=== PATIENT | female | born 1940 | race Caucasian/White ===

== ENCOUNTER 2016-12-13 13:13 | Emergency (ER) | payer MEDICARE ==
[2016-12-13 13:37] VITALS: BP 149/74
--- NOTE | 2016-12-13 15:03 | UC ---
Abdominal Pain Female HPI - HPI Summary HPI Summary: The patient comes in today for: 1. Abdominal pain: Onset: 2 weeks. Palliative/provocative: Nothing makes her pain better or worse. Quality: Cramping, and she states she feels like she has to empty her bowels. Region: Lower right and left abdomen. Severity: 8/10 Time: Constant. Associated symptoms: Previous evaluation: She is a [facility] patient who was seen 5 days ago. She states that the nurse practitioner there thought she had diverticulitis and put her on Augmentin. She was taking it 875 mg twice a day with no improvement. She denies any fevers. She has had a colonoscopy done in 2013. This was done in [facility]. She was only told that she had polpys removed which were not cancerous. She was supposed to have a repeat colonoscopy in five years. The nurse practitioner ordered blood work. No urine was done. She does not know what blood tests were done. She was told that they were 'OK'. She states that she had a previous episode of abdominal pain and again was seen at [facility] but was told then that she had problems with constipation. She was given Miralax and after using it she was better. Last BM: Normal. No blood mucous or pus. * - History of Current Complaint Chief Complaint: UCAbdominalPain Stated Complaint: STOMACH PAINS Time Seen by Provider: 12/13/16 14:53 Hx Obtained From: Patient ?: No Allergies/Adverse Reactions: Allergies Allergy/AdvReac Type Severity Reaction Status Date / Time Sulfa Antibiotics Allergy Rash Verified 12/31/15 08:11 Home Medications: Home Medications Amoxicillin/Clavulanate TAB* [Augmentin TAB 875*] 875 mg PO BID 12/13/16 [ History Confirmed 12/13/16] PMH/Surg Hx/FS Hx/Imm Hx Previously Healthy: No - Gout. Endocrine History Of: Reports: Thyroid Disease, Dyslipidemia Denies: Diabetes, Hyperthyroidism, Hypothyroidism Cardiovascular History Of: Reports: Cardiac Disorders - atrial fibrillation -, Hypertension, Pacemaker/ICD, Atrial Fibrillation Denies: Myocardial Infarction, Congestive Heart Failure, Deep Vein Thrombosis , Bleeding Disorders Respiratory History Of: Reports: COPD - THINK MAYBE Denies: Asthma, Bronchitis, Pneumonia, Pulmonary Embolism GI/ History Of: Denies: Gastroesophageal Reflux, Ulcer, Gastrointestinal Bleed, Gall Bladder Disease, Kidney Stones, Diverticulitis, Renal Disease, Urosepsis Neurological History Of: Reports: Migraine - HX OF -NONE RECENTLY Denies: TIA, CVA, Dementia, Seizures Psychological History Of: Reports: Anxiety Denies: Depression, Bipolar Disorder, Schizophrenia, Post Traumatic Stress Disorder Cancer History Of: Denies: Lung Cancer, Colorectal Cancer, Breast Cancer, Prostate Cancer, Cervical Cancer Other History Of: Anticoagulant Therapy - On 12/11 INR was 3.5 Negative For: HIV, Hepatitis B, Hepatitis C - Surgical History Surgical History: Yes Surgery Procedure, Year, and Place: PACEMAKER; [facility] - Family History Known Family History: Positive: Cardiac Disease, Hypertension - Social History Occupation: Retired Alcohol Use: None Substance Use Type: None Smoking Status (MU): Heavy Every Day Tobacco Smoker Type: Cigarettes Amount Used/How Often: 1 ppd Length of Time of Smoking/Using Tobacco: SINCE AGE 19 Have You Smoked in the Last Year: Yes Household Exposure Type: Cigarettes - Immunization History Most Recent Influenza Vaccination: never Most Recent Tetanus Shot: unknown Most Recent Pneumonia Vaccination: never Review of Systems Constitutional: Negative Skin: Negative Eyes: Negative ENT: Negative Respiratory: Negative Cardiovascular: Negative Gastrointestinal: Abdominal Pain Genitourinary: Negative All Other Systems Reviewed And Are Negative: Yes Physical Exam Triage Information Reviewed: Yes Appearance: Well-Appearing, No Pain Distress, Well-Nourished Vital Signs: Initial Vital Signs Temp 96.4 F 12/13/16 13:30 Pulse 88 12/13/16 13:30 Resp 18 12/13/16 13:30 BP 149/74 12/13/16 13:30 Pulse Ox 96 12/13/16 13:30 Vital Signs Reviewed: Yes Eyes: Positive: Conjunctiva Clear. Negative: Discharge ENT: Positive: Hearing grossly normal. Negative: Pharyngeal erythema, Nasal congestion, Nasal drainage, TM bulging, TM dull, TM red, Tonsillar swelling, Tonsillar exudate Dental: Negative: Gross Decay/Caries @, Dental Fracture @ Neck: Positive: Supple, Nontender, No Lymphadenopathy. Negative: Nuchal Rigidity Respiratory: Positive: Chest non-tender, Lungs clear, No respiratory distress, No accessory muscle use. Negative: Crackles, Wheezing Cardiovascular: Positive: RRR, No Murmur Abdomen Description: Positive: No Organomegaly, Soft - She had no rebound tenderness or percussion tenderness. The pain was not much worse with deep palpation. No masses/. Negative: Nontender - She has mild tenderness of the LLQ and the RLQ and the suprapubic area., Distended, Guarding, Peritoneal Signs , Pulsatile Mass Musculoskeletal: Positive: Strength Intact, ROM Intact, No Edema Neurological: Positive: Alert, Muscle Tone Normal Psychological: Positive: Age Appropriate Behavior, Consolable Skin: Negative: rashes, breakdown Abd Pain Female Course/Dx - Course Course Of Treatment: The patient was told that I don't know for sure what is causing her abdominal. pain. The patient was also told that there are many causes for abdominal pain--. some which are benign and some which are life- threatening. Furthermore, it was. mentioned that the life-threatening causes of abdominal pain can present with. minimal, atypical, or even no symptoms. Becasue of these facts and the fact. that we don't have here all the testing methods commonly used to assess abdominal. pain, and their timely resuts, my recommendation is for the patient to go to. the [facility] ([facility]) ER. However, she did not want to do this and decided to call her primary care provider in the morning for a repeat evaluation. She declined any anti-spasmodic medication. - Differential Dx/Diagnosis Provider Diagnoses: Abdominal pain Discharge - Discharge Plan Condition: Stable Disposition: AGAINST MEDICAL ADVICE Patient Education Materials: Abdominal Pain (ED) Referrals: Cathy Andrade MD [Primary Care Provider] - As Soon As Possible (If you are not going to the ER, please see your primary care provider as soon as you can. If you get worse, please re-consider going to the ER.)
== END 2016-12-13 15:43 | disposition left against medical advice (07) ==
LOC: UCEAST 13:13
DX: R10.30 Lower abdominal pain, unspecified (principal); Z88.2 Allergy status to sulfonamides; F17.210 Nicotine dependence, cigarettes, uncomplicated
CPT/HCPCS: 99212; G0463

== ENCOUNTER 2017-08-02 21:40 | Emergency (ER) | payer MEDICARE ==
[2017-08-02] MEDS ORDERED: NS 0.9% 1000 ML* 1,000 ML IV SCH (22:00)
[2017-08-02 22:28] LABS: Hematocrit 39 % (35-47); Hemoglobin 13.4 g/dl (12.0-16.0); Mean Corpuscular HGB Conc 35 g/dl (31-36); Mean Corpuscular Hemoglobin 31 pg (27-31); Mean Corpuscular Volume 90 fL (80-97); Mean Platelet Volume 7 um3 (7.4-10.4); Red Blood Count 4.27 10^6/ul (4.0-5.4); Red Cell Distribution Width 15 % (10.5-15); White Blood Count 5.8 10^3/ul (3.5-10.8)
[2017-08-02 22:42] LABS: Albumin 4.2 g/dL (3.2-5.2); BUN/Creatinine Ratio 16.1 (8-20); C Reactive Protein 16.14 mg/L (< 5.00); EGFR African American 57.3 (>60); EGFR Non-African American 44.5 (>60); Globulin 3.6 g/dL (2-4); Magnesium 2.1 mg/dL (1.9-2.7); Potassium 3.5 mmol/L (3.5-5.0); Total Bilirubin 0.4 mg/dL (0.2-1.0); Total Protein 7.8 g/dL (6.4-8.9)
[2017-08-02 22:45] LABS: Troponin I 0.01 ng/mL (<0.04)
[2017-08-02 23:27] LABS: TSH (Thyroid Stimulating Horm) 1.36 mcIU/mL (0.34-5.60)
[2017-08-03 00:37] VITALS: BP 128/70
--- NOTE | 2017-08-03 00:55 | ED ---
Sheldon Greenberg Nikita, scribed for Bandar Carlisle MD on 08/03/17 at 0014 . Hypertension - HPI Summary HPI Summary: This patient is a 76 year old F presenting to ED with a chief complaint of HTN since yesterday afternoon (08/02). The CC is described as constant. The patient rates the pain 2/10 in severity (MOMIN). Symptoms aggravated by nothing. Symptoms alleviated by nothing. Patient reports MOMIN and L shoulder pain. Patient denies SOB. Pt has taken Lisinopril 20mg, Triamteren-HCTZ37.5-25mg, and Atenolol 25mg at approximately 1800. - History of Current Complaint Chief Complaint: EDHypertension Stated Complaint: HIGH BP Time Seen by Provider: 08/03/17 00:05 Hx Obtained From: Patient Onset/Duration: Started Hours Ago, Still Present Timing: Constant, Lasting Hours Aggravating Factor(s): Nothing Alleviating Factor(s): Nothing Associated Signs & Symptoms: Other: - MOMIN and L shoulder pain; denies SOB - Allergies/Home Medications Allergies/Adverse Reactions: Allergies Allergy/AdvReac Type Severity Reaction Status Date / Time Sulfa Antibiotics Allergy Rash Verified 08/02/17 21:46 PMH/Surg Hx/FS Hx/Imm Hx Endocrine/Hematology History: Reports: Hx Anticoagulant Therapy - On 12/11 INR was 3.5, Hx Blood Transfusions, Hx Thyroid Disease Denies: Hx Diabetes Cardiovascular History: Reports: Hx Coronary Artery Disease - CAROTID ARTERY, Hx Hypercholesterolemia, Hx Hypertension, Hx Pacemaker/ICD, Other Cardiovascular Problems/Disorders Denies: Hx Angina - JAW ACHE LEFT, Hx Congestive Heart Failure, Hx Deep Vein Thrombosis, Hx Myocardial Infarction Respiratory History: Reports: Hx Chronic Obstructive Pulmonary Disease (COPD) - THINK MAYBE Denies: Hx Asthma, Hx Lung Cancer, Hx Pneumonia, Hx Pulmonary Embolism GI History: Denies: Hx Gall Bladder Disease, Hx Gastrointestinal Bleed, Hx Ulcer, Hx Urosepsis History: Denies: Hx Kidney Stones, Hx Renal Disease Musculoskeletal History: Reports: Hx Arthritis Sensory History: Reports: Hx Cataracts - BILATARAL, Hx Contacts or Glasses Denies: Hx Hearing Aid Opthamlomology History: Reports: Hx Cataracts - BILATARAL, Hx Contacts or Glasses Neurological History: Reports: Hx Migraine - HX OF -NONE RECENTLY Denies: Hx Dementia, Hx Seizures, Hx Transient Ischemic Attacks (TIA) Psychiatric History: Reports: Hx Anxiety Denies: Hx Depression, Hx Schizophrenia, Hx Bipolar Disorder - Surgical History Surgery Procedure, Year, and Place: PACEMAKER; [place] Hx Anesthesia Reactions: No - Immunization History Date of Tetanus Vaccine: PT STATES UNSURE Date of Influenza Vaccine: NONE Infectious Disease History: No Infectious Disease History: Denies: Hx Clostridium Difficile, Hx Hepatitis, Hx Human Immunodeficiency Virus (HIV), Hx of Known/Suspected MRSA, Hx Shingles, Hx Tuberculosis, Hx Known/ Suspected VRE, Hx Known/Suspected VRSA, History Other Infectious Disease, Traveled Outside the [place] in Last 30 Days - Family History Known Family History: Positive: Cardiac Disease, Hypertension - Social History Alcohol Use: None Substance Use Type: Reports: None Smoking Status (MU): Heavy Every Day Tobacco Smoker Type: Cigarettes Amount Used/How Often: 1 ppd Length of Time of Smoking/Using Tobacco: SINCE AGE 19 Have You Smoked in the Last Year: Yes Review of Systems Positive: Other - hypertension Negative: Shortness Of Breath Positive: Other - L shoulder pain Positive: Headache All Other Systems Reviewed And Are Negative: Yes Physical Exam Triage Information Reviewed: Yes Vital Signs On Initial Exam: Initial Vitals Temp Pulse Resp BP Pulse Ox 97.1 F 79 18 188/87 97 08/02/17 21:42 08/02/17 21:42 08/02/17 21:42 08/02/17 21:42 08/02/17 21:42 Vital Signs Reviewed: Yes Appearance: Positive: Well-Appearing, No Pain Distress Skin: Positive: Warm, Skin Color Reflects Adequate Perfusion, Dry Head/Face: Positive: Normal Head/Face Inspection Eyes: Positive: EOMI, FINA ENT: Positive: Normal ENT inspection Neck: Positive: Supple, Nontender Respiratory/Lung Sounds: Positive: Clear to Auscultation, Breath Sounds Present Cardiovascular: Positive: RRR Abdomen Description: Positive: Nontender, Soft Bowel Sounds: Positive: Present Musculoskeletal: Positive: Normal, Strength/ROM Intact Neurological: Positive: Normal, Sensory/Motor Intact, Alert, Oriented to Person Place, Time Psychiatric: Positive: Affect/Mood Appropriate - [place] Coma Scale Coma Scale Total: 15 Diagnostics - Vital Signs Vital Signs Temp Pulse Resp BP Pulse Ox 08/02/17 23:30 69 125/64 96 08/02/17 23:00 71 131/62 97 08/02/17 22:39 70 109/62 97 08/02/17 22:01 75 96 08/02/17 22:00 144/76 08/02/17 21:42 97.1 F 79 18 188/87 97 - Laboratory Lab Results: Lab Results 08/02/17 08/02/17 08/02/17 Range/Units 22:00 22:00 22:00 WBC (3.5-10.8) 10^3/ul RBC (4.0-5.4) 10^6/ul Hgb (12.0-16.0) g/dl Hct (35-47) % MCV (80-97) fL MCH (27-31) pg MCHC (31-36) g/dl RDW (10.5-15) % Plt Count (150-450) 10^3/ul MPV (7.4-10.4) um3 Neut % (Auto) (38-83) % Lymph % (Auto) (25-47) % [place] % (Auto) (1-9) % Eos % (Auto) (0-6) % Baso % (Auto) (0-2) % Absolute Neuts (auto) (1.5-7.7) 10^3/ul Absolute Lymphs (auto) (1.0-4.8) 10^3/ul Absolute Monos (auto) (0-0.8) 10^3/ul Absolute Eos (auto) (0-0.6) 10^3/ul Absolute Basos (auto) (0-0.2) 10^3/ul Absolute Nucleated RBC 10^3/ul Nucleated RBC % INR (Anticoag Therapy) 1.57 H (0.89-1.11) APTT 42.0 H (26.0-36.3) seconds Sodium 133 (133-145) mmol/L Potassium 3.5 (3.5-5.0) mmol/L Chloride 98 L (101-111) mmol/L Carbon Dioxide 28 (22-32) mmol/L Anion Gap 7 (2-11) mmol/L BUN 19 (6-24) mg/dL Creatinine 1.18 H (0.51-0.95) mg/dL Est GFR ( Amer) 57.3 (>60) Est GFR (Non-Af Amer) 44.5 (>60) BUN/Creatinine Ratio 16.1 (8-20) Glucose 150 H (70-100) mg/dL Lactic Acid 2.0 (0.5-2.0) mmol/L Calcium 10.0 (8.6-10.3) mg/dL Magnesium 2.1 (1.9-2.7) mg/dL Total Bilirubin 0.40 (0.2-1.0) mg/dL AST 15 (13-39) U/L ALT 9 (7-52) U/L Alkaline Phosphatase 98 (34-104) U/L Total Creatine Kinase 35 (10-223) U/L CK-MB (CK-2) 1.2 (0.6-6.3) ng/mL Troponin I 0.01 (<0.04) ng/mL C-Reactive Protein 16.14 H (< 5.00) mg/L B-Natriuretic Peptide ( - 100) pg/mL Total Protein 7.8 (6.4-8.9) g/dL Albumin 4.2 (3.2-5.2) g/dL Globulin 3.6 (2-4) g/dL Albumin/Globulin Ratio 1.2 (1-3) Lipase 22 (11.0-82.0) U/L TSH 1.36 (0.34-5.60) mcIU/mL 08/02/17 08/02/17 Range/Units 22:00 22:00 WBC 5.8 (3.5-10.8) 10^3/ul RBC 4.27 (4.0-5.4) 10^6/ul Hgb 13.4 (12.0-16.0) g/dl Hct 39 (35-47) % MCV 90 (80-97) fL MCH 31 (27-31) pg MCHC 35 (31-36) g/dl RDW 15 (10.5-15) % Plt Count 247 (150-450) 10^3/ul MPV 7 L (7.4-10.4) um3 Neut % (Auto) 70.8 (38-83) % Lymph % (Auto) 23.7 L (25-47) % [place] % (Auto) 4.6 (1-9) % Eos % (Auto) 0.1 (0-6) % Baso % (Auto) 0.8 (0-2) % Absolute Neuts (auto) 4.1 (1.5-7.7) 10^3/ul Absolute Lymphs (auto) 1.4 (1.0-4.8) 10^3/ul Absolute Monos (auto) 0.3 (0-0.8) 10^3/ul Absolute Eos (auto) 0 (0-0.6) 10^3/ul Absolute Basos (auto) 0 (0-0.2) 10^3/ul Absolute Nucleated RBC 0 10^3/ul Nucleated RBC % 0 INR (Anticoag Therapy) (0.89-1.11) APTT (26.0-36.3) seconds Sodium (133-145) mmol/L Potassium (3.5-5.0) mmol/L Chloride (101-111) mmol/L Carbon Dioxide (22-32) mmol/L Anion Gap (2-11) mmol/L BUN (6-24) mg/dL Creatinine (0.51-0.95) mg/dL Est GFR ( Amer) (>60) Est GFR (Non-Af Amer) (>60) BUN/Creatinine Ratio (8-20) Glucose (70-100) mg/dL Lactic Acid (0.5-2.0) mmol/L Calcium (8.6-10.3) mg/dL Magnesium (1.9-2.7) mg/dL Total Bilirubin (0.2-1.0) mg/dL AST (13-39) U/L ALT (7-52) U/L Alkaline Phosphatase (34-104) U/L Total Creatine Kinase (10-223) U/L CK-MB (CK-2) (0.6-6.3) ng/mL Troponin I (<0.04) ng/mL C-Reactive Protein (< 5.00) mg/L B-Natriuretic Peptide 308 H ( - 100) pg/mL Total Protein (6.4-8.9) g/dL Albumin (3.2-5.2) g/dL Globulin (2-4) g/dL Albumin/Globulin Ratio (1-3) Lipase (11.0-82.0) U/L TSH (0.34-5.60) mcIU/mL Result Diagrams: 08/02/17 22:00 08/02/17 22:00 Lab Statement: Any lab studies that have been ordered have been reviewed, and results considered in the medical decision making process. - Radiology CXR Radiology Interpretation Completed By: ED Physician - NAD - EKG 2227 Cardiac Rate: NL EKG Rhythm: Atrial Fibrillation - 72 bpm EKG Interpretation: A-V dual-paced rhythm with some inhibition Hypertension Course/Dx - Course Assessment/Plan: This patient is a 76 year old F presenting to ED with a chief complaint of HTN since yesterday afternoon (08/02). The CC is described as constant. The patient rates the pain 2/10 in severity (MOMIN). Symptoms aggravated by nothing. Symptoms alleviated by nothing. Patient reports MOMIN and L shoulder pain. Patient denies SOB. BP noted and advised to follow up with PCP. Medications reviewed. Allergies noted. CXR reveals NAD. EKG reveals a-fib at 72 bpm and A-V dual-paced rhythm with some inhibition. In the ED course, pt was given fluids. Pt will be discharged. Pt is agreeable with this plan. BP IMPROVED IN ED. DISCUSSED RESULTS WITH PATIENT. F/U PMD; RETURN IF WORSE. - Diagnoses Provider Diagnoses: Hypertension Discharge - Discharge Plan Condition: Stable Disposition: HOME Patient Education Materials: Hypertension (ED) Referrals: Cathy Andrade MD [Primary Care Provider] - Additional Instructions: FOLLOW UP WITH YOUR DOCTOR. RETURN TO THE EMERGENCY DEPARTMENT FOR ANY WORSENING OF YOUR CONDITION; CHEST PAIN, SHORTNESS OF BREATH OR QUESTIONS OR CONCERNS. The documentation as recorded by the Sheldon bhat Nikita accurately reflects the service I personally performed and the decisions made by me, Bandar Carlilse MD.
--- NOTE | 2017-08-03 07:14 | RAD ---
INDICATION: Hypertension. COMPARISON: Comparison is made with a prior chest x-ray study from May 06, 2016. TECHNIQUE: A portable view of the chest was obtained. FINDINGS: The heart appears slightly prominent likely due to underinflation of the lungs and portable technique. There is a multilead transvenous pacemaker present. There is mild prominence of the interstitial markings. The lungs are underinflated and otherwise clear. No pleural effusion is seen. IMPRESSION: NO EVIDENCE FOR ACUTE FINDING.
== END 2017-08-03 00:37 | disposition home or self-care (01) ==
LOC: ED 21:40
DX: I10 Essential (primary) hypertension (principal); R51 Headache; M25.512 Pain in left shoulder; F17.210 Nicotine dependence, cigarettes, uncomplicated; Z79.01 Long term (current) use of anticoagulants
CPT/HCPCS: 36415; 71010; 80053; 82550; 82553; 83605; 83690; 83735; 83880; 84443; 84484; 85025; 85610; 85730; 86140; 93005; 99283

== ENCOUNTER 2018-11-03 19:25 | Emergency (ER) | payer MEDICARE ==
--- NOTE | 2018-11-03 19:53 | ED ---
Dizziness - HPI Summary HPI Summary: This patient is a 77 year old female brought in by ambulance to [facility] accompanied by daughter with a chief complaint of dizziness since 2-3 days ago. Patient states that she has had intermittent dizziness with elevated blood pressure for the past 2-3 days and today, she experienced sudden onset left jaw pain as well. Patients daughter states that the measured bp [employer] INSTRUCTION SPECIALIST was around 230/ 160. The pain is rated 2/10 in severity. Symptoms aggravated by sitting down. Symptoms alleviated by nothing. Patient denies chest pain, SOB, fever, diaphoresis. Patient has a hx of a fib and has a pacemaker. - History Of Current Complaint Chief Complaint: EDDizziness Stated Complaint: CHEST PAIN Time Seen by Provider: 11/03/18 19:36 Hx Obtained From: Patient Onset/Duration: Resolved Timing: Constant Severity Initially: Moderate Character: Dizzy Aggravating Factor(s): Position Change Alleviating Factor(s): Nothing Associated Signs And Symptoms: Positive: Negative - denies chest pain, SOB, fever, diaphoresis - Allergies/Home Medications Allergies/Adverse Reactions: Allergies Allergy/AdvReac Type Severity Reaction Status Date / Time Sulfa (Sulfonamide Allergy Rash Verified 11/03/18 19:38 Antibiotics) PMH/Surg Hx/FS Hx/Imm Hx Previously Healthy: No Endocrine/Hematology History: Reports: Hx Anticoagulant Therapy - On 12/11 INR was 3.5, Hx Blood Transfusions, Hx Thyroid Disease Denies: Hx Diabetes Cardiovascular History: Reports: Hx Coronary Artery Disease - CAROTID ARTERY, Hx Hypercholesterolemia, Hx Hypertension, Hx Pacemaker/ICD, Other Cardiovascular Problems/Disorders Denies: Hx Angina - JAW ACHE LEFT, Hx Congestive Heart Failure, Hx Deep Vein Thrombosis, Hx Myocardial Infarction Respiratory History: Reports: Hx Chronic Obstructive Pulmonary Disease (COPD) - THINK MAYBE Denies: Hx Asthma, Hx Lung Cancer, Hx Pneumonia, Hx Pulmonary Embolism GI History: Denies: Hx Gall Bladder Disease, Hx Gastrointestinal Bleed, Hx Ulcer, Hx Urosepsis History: Denies: Hx Kidney Stones, Hx Renal Disease Musculoskeletal History: Reports: Hx Arthritis Sensory History: Reports: Hx Cataracts - BILATARAL, Hx Contacts or Glasses Denies: Hx Hearing Aid Opthamlomology History: Reports: Hx Cataracts - BILATARAL, Hx Contacts or Glasses Neurological History: Reports: Hx Migraine - HX OF -NONE RECENTLY Denies: Hx Dementia, Hx Seizures, Hx Transient Ischemic Attacks (TIA) Psychiatric History: Reports: Hx Anxiety Denies: Hx Depression, Hx Schizophrenia, Hx Bipolar Disorder - Surgical History Surgery Procedure, Year, and Place: PACEMAKER; [facility] Hx Anesthesia Reactions: No - Immunization History Date of Tetanus Vaccine: PT STATES UNSURE Date of Influenza Vaccine: NONE Infectious Disease History: No Infectious Disease History: Denies: Hx Clostridium Difficile, Hx Hepatitis, Hx Human Immunodeficiency Virus (HIV), Hx of Known/Suspected MRSA, Hx Shingles, Hx Tuberculosis, Hx Known/ Suspected VRE, Hx Known/Suspected VRSA, History Other Infectious Disease, Traveled Outside the [place] in Last 30 Days - Family History Known Family History: Positive: Cardiac Disease, Hypertension - Social History Occupation: Retired Lives: With Family Alcohol Use: None Hx Substance Use: No Substance Use Type: Reports: None Hx Tobacco Use: Yes Smoking Status (MU): Heavy Every Day Tobacco Smoker Type: Cigarettes Amount Used/How Often: 1 ppd Length of Time of Smoking/Using Tobacco: SINCE AGE 19 Have You Smoked in the Last Year: Yes Review of Systems Negative: Fever, Skin Diaphoresis Negative: Chest Pain Negative: Shortness Of Breath Positive: Other - left jaw pain Neurological: Other - Dizziness All Other Systems Reviewed And Are Negative: Yes Physical Exam - Summary Physical Exam Summary: VITAL SIGNS: Reviewed. GENERAL: Patient is a well-developed and nourished female who is lying comfortable in the stretcher. Patient is not in any acute respiratory distress. HEAD AND FACE: No signs of trauma. No ecchymosis, hematomas or skull depressions. No sinus tenderness. EYES: PERRLA, EOMI x 2, Left subconjunctival hemorrhage that has been there since an injection in the eye last week. EARS: Hearing grossly intact. Ear canals and tympanic membranes are within normal limits. MOUTH: Oropharynx within normal limits. NECK: Supple, trachea is midline, no adenopathy, no JVD, no carotid bruit, no c- spine tenderness, neck with full ROM. CHEST: Symmetric, no tenderness at palpation LUNGS: Clear to auscultation bilaterally. No wheezing or crackles. CVS: Regular rate and rhythm, S1 and S2 present, no murmurs or gallops appreciated. ABDOMEN: Soft, non-tender. No signs of distention. No rebound no guarding, and no masses palpated. Bowel sounds are normal. EXTREMITIES: FROM in all major joints, no edema, no cyanosis or clubbing. NEURO: Alert and oriented x 3. No acute neurological deficits. Speech is normal and follows commands. SKIN: Dry and warm Triage Information Reviewed: Yes Vital Signs On Initial Exam: Initial Vitals Temp Pulse Resp BP Pulse Ox 97.0 F 89 15 136/85 94 11/03/18 19:33 11/03/18 19:33 11/03/18 19:33 11/03/18 19:33 11/03/18 19:33 Vital Signs Reviewed: Yes Diagnostics - Vital Signs Vital Signs Temp Pulse Resp BP Pulse Ox 11/03/18 19:37 73 21 136/85 92 11/03/18 19:33 97.0 F 89 15 136/85 94 - Laboratory Result Diagrams: 11/03/18 20:00 11/03/18 20:00 Lab Statement: Any lab studies that have been ordered have been reviewed, and results considered in the medical decision making process. - EKG 2003 Cardiac Rate: Other Rate EKG Rhythm: Sinus Rhythm - 78 BPM Summary of EKG Findings: An EKG, taken 2003, reveals paced rate (78 BPM), normal axis, normal intervals, no ischemic changes. Re-Evaluation - Re-Evaluation First Eval Re-Evaluation Time: 21:15 Change: Improved Comment: Patient is able to ambulate in the ED with no dizziness and with a steady gait. Patient will be given a prescription for 10mg of Lisinopril and instructed to increase her daily dosage from 20mg to 30mg. Dizzy Course/Dx - Course Course Of Treatment: This patient is a 77 year old female brought in by ambulance to [facility] accompanied by daughter with a chief complaint of dizziness since 2-3 days ago. Patients daughter states that the measured bp [employer] INSTRUCTION SPECIALIST was around 230/160. The pain is rated 2/10 in severity. Symptoms aggravated by sitting down. Symptoms alleviated by nothing. Patient denies chest pain, SOB, fever, diaphoresis. Patient has a hx of a fib and has a pacemaker. An EKG, taken 2003, reveals paced rate (78 BPM), normal axis, normal intervals, no ischemic changes. Bloodwork Obtained. Patient is able to ambulate in the ED with no dizziness and with a steady gait at 2117. Patient will be given a prescription for 10mg of Lisinopril and instructed to increase her daily dosage from 20mg to 30mg. Patient will be discharged with HTN and given a prescription for Lisinopril. Patient is advised to follow up with PCP in 1-2 days. The patient is agreeable with this plan. - Diagnoses Provider Diagnoses: HTN (hypertension) Discharge - Sign-Out/Discharge Documenting (check all that apply): Patient Departure Patient Received Moderate/Deep Sedation with Procedure: No - Discharge Plan Condition: Stable Disposition: HOME Prescriptions: Lisinopril TAB* [Prinivil TAB 10 MG*] 10 mg PO DAILY #30 tab Patient Education Materials: Chronic Hypertension (ED) Referrals: Cathy Andrade MD [Primary Care Provider] - 1 Day Additional Instructions: Take newly prescribed Lisinopril in conjunction with daily HTN medication. Return to the ED for any new or worsening symptoms. - Billing Disposition and Condition Condition: STABLE Disposition: Home - Attestation Statements Document Initiated by Beatrice: Yes Documenting Scribe: Radha Chung Provider For Whom Beatrice is Documenting (Include Credential): Gopal Valiente MD Scribe Attestation: Radha Greenberg scribed for Gopal Valiente MD on 11/03/18 at 2121. Scribe Documentation Reviewed: Yes Provider Attestation: The documentation as recorded by the Radha bhat accurately reflects the service I personally performed and the decisions made by Juanjo rojas MD Status of Scribe Document: Viewed
[2018-11-03 20:08] LABS: ABS Basophils 0 10^3/ul (0-0.2); ABS Eosinophils 0 10^3/ul (0-0.6); ABS Lymphocytes 1.3 10^3/ul (1.0-4.8); ABS Monocytes 0.3 10^3/ul (0-0.8); ABS Neutrophils 3.9 10^3/ul (1.5-7.7); ABS Nucleated RBC 0 10^3/ul; Eosinophil % 0.1 %; Hematocrit 39 % (35-47); Hemoglobin 13.4 g/dl (12.0-16.0); Lymphocyte % 22.9 %; Mean Corpuscular HGB Conc 34 g/dl (31-36); Mean Corpuscular Hemoglobin 31 pg (27-31); Mean Corpuscular Volume 91 fL (80-97); Mean Platelet Volume 6.8 fL (7.4-10.4); Nucleated Red Blood Cells % 0.1; Platelet Count 270 10^3/ul (150-450); Red Blood Count 4.32 10^6/ul (4.00-5.40); Red Cell Distribution Width 15 % (10.5-15); White Blood Count 5.5 10^3/ul (3.5-10.8)
[2018-11-03 20:16] LABS: Activated Partial Thrombo Time 48.3 seconds (26.0-36.3); INR 1.93 (0.77-1.02)
[2018-11-03 20:27] LABS: Albumin 4.3 g/dL (3.2-5.2); Albumin/Globulin Ratio 1.2 (1-3); BUN/Creatinine Ratio 14.8 (8-20); Calcium 9.4 mg/dL (8.6-10.3); EGFR African American 48.9 (>60); EGFR Non-African American 40.4 (>60); Globulin 3.6 g/dL (2-4); Magnesium 2.1 mg/dL (1.9-2.7); Potassium 3.7 mmol/L (3.5-5.0); Total Bilirubin 0.4 mg/dL (0.2-1.0); Total Protein 7.9 g/dL (6.4-8.9); Troponin I 0.03 ng/mL (<0.04)
[2018-11-03 21:55] VITALS: BP 154/79
== END 2018-11-03 21:45 | disposition home or self-care (01) ==
LOC: ED 19:25
DX: I10 Essential (primary) hypertension (principal); I25.10 Atherosclerotic heart disease of native coronary artery without angina pectoris; Z95.810 Presence of automatic (implantable) cardiac defibrillator; Z88.2 Allergy status to sulfonamides; F17.210 Nicotine dependence, cigarettes, uncomplicated
CPT/HCPCS: 36415; 80053; 83735; 84484; 85025; 85610; 85730; 93005; 99283

== ENCOUNTER 2019-11-13 09:59 | Emergency (ER) | payer MEDICARE ==
--- NOTE | 2019-11-13 10:33 | ED ---
Abdominal Pain/Female - HPI Summary HPI Summary: The patient is a 78-year-old female presenting to [facility] emergency department with a chief complaint of right lower quadrant pain radiating into the back onset . She reports that the pain has been worsening since it began. There are no aggravating or alleviating factors, although she has taken Tylenol 500mg at 0630 this morning. She has been experiencing a loss of appetite. She denies any fevers, chills, nausea, vomiting, constipation, diarrhea, or urinary symptoms. Symptoms rated 8/10 in severity. Past medical history significant for cholecystectomy, coronary artery disease, hyperlipidemia, hypertension, pacemaker with Coumadin use, COPD, migraines, anxiety. Current heavy smoker, no alcohol use, no substance use. Medications reviewed. Allergies noted. Home Medications Medication Instructions Recorded Confirmed Type Lisinopril TAB* [Prinivil TAB 10 20 mg PO BID 01/03/14 11/13/19 History MG*] Cyanocobalamin TAB* [Vitamin B12 1,000 mcg PO DAILY 02/15/14 11/13/19 History TAB*] Levothyroxine TAB* [Synthroid 88 88 mcg PO DAILY 02/15/14 11/13/19 History MCG TAB*] clonazePAM TAB(*) [Klonopin TAB(*)] 0.5 mg PO BID PRN MDD 2 tabs 02/15/14 History Metoprolol Succinate [Toprol Xl] 25 mg PO DAILY 04/01/18 11/13/19 History Acetaminophen [Tylenol 8 Hour] 650 mg PO DAILY PRN 11/13/19 11/13/19 History Allopurinol TAB* [Zyloprim 100 MG 100 mg PO DAILY 11/13/19 11/13/19 History TAB*] Atorvastatin* [Lipitor*] 20 mg PO DAILY 11/13/19 11/13/19 History Colchicine* [Colcrys*] 0.6 mg PO BID 11/13/19 11/13/19 History Ezetimibe TAB* [Zetia TAB*] 10 mg PO DAILY 11/13/19 11/13/19 History Fluticasone NASAL SPRAY 50MCG* 2 spray BOTH NARES DAILY 11/13/19 11/13/19 History [Flonase NASAL SPRAY 50MCG*] Magnesium Hydroxide LIQ* [Milk of 30 ml PO BEDTIME PRN 11/13/19 11/13/19 History Magnesia LIQ*] Polyethylene Glycol 3350* [Miralax 17 gm PO EVERY OTHER DAY 11/13/19 11/13/19 History (17 GM DOSE MARIOLA)] Potassium Gluconate [Potassium] 600 mg PO DAILY 11/13/19 11/13/19 History Triamterene/HCTZ 37.5-25 MG* 0.5 - 1 tab PO DAILY 11/13/19 11/13/19 History [Dyazide CAP*] Warfarin TAB(*) [Coumadin TAB(*)] 1.25 mg PO SUTUWETHSA 11/13/19 11/13/19 History Warfarin TAB(*) [Coumadin TAB(*)] 2.5 mg PO MOFR 11/13/19 11/13/19 History - History of Current Complaint Chief Complaint: EDAbdPain Stated Complaint: RIGHT FLANK PAIN Time Seen by Provider: 11/13/19 10:13 Hx Obtained From: Patient Onset/Duration: Sudden Onset, Lasting Days - since 11/13/2019, Still Present Timing: Constant Severity Initially: Moderate Severity Currently: Severe Pain Intensity: 8 Pain Scale Used: 0-10 Numeric Location: Discrete At: RLQ Radiates: Yes Radiates to: Back - right low, Flank - right Aggravating Factor(s): Nothing Alleviating Factor(s): Nothing - Tyelnol without relief Associated Signs and Symptoms: Positive: Decreased Appetite. Negative: Fever, Constipation, Urinary Symptoms, Nausea, Vomiting, Diarrhea, Other: - chills Allergies/Adverse Reactions: Allergies Allergy/AdvReac Type Severity Reaction Status Date / Time Sulfa (Sulfonamide Allergy Rash Verified 11/13/19 10:03 Antibiotics) STERI STRIPS Allergy Rash Uncoded 11/13/19 10:03 Home Medications: Home Medications Lisinopril TAB* [Prinivil TAB 10 MG*] 20 mg PO BID 01/03/14 [History Confirmed 11/13/19] Cyanocobalamin TAB* [Vitamin B12 TAB*] 1,000 mcg PO DAILY 02/15/14 [History Confirmed 11/13/19] Levothyroxine TAB* [Synthroid 88 MCG TAB*] 88 mcg PO DAILY 02/15/14 [History Confirmed 11/13/19] clonazePAM TAB(*) [Klonopin TAB(*)] 0.5 mg PO BID PRN MDD 2 tabs 02/15/14 [ History Confirmed 11/13/19] Metoprolol Succinate [Toprol Xl] 25 mg PO DAILY 04/01/18 [History Confirmed ] Acetaminophen [Tylenol 8 Hour] 650 mg PO DAILY PRN 11/13/19 [History Confirmed 11/13/19] Allopurinol TAB* [Zyloprim 100 MG TAB*] 100 mg PO DAILY 11/13/19 [History Confirmed 11/13/19] Atorvastatin* [Lipitor*] 20 mg PO DAILY 11/13/19 [History Confirmed 11/13/19] Colchicine* [Colcrys*] 0.6 mg PO BID 11/13/19 [History Confirmed 11/13/19] Ezetimibe TAB* [Zetia TAB*] 10 mg PO DAILY 11/13/19 [History Confirmed 11/13/19] Fluticasone NASAL SPRAY 50MCG* [Flonase NASAL SPRAY 50MCG*] 2 spray BOTH NARES DAILY 11/13/19 [History Confirmed 11/13/19] Magnesium Hydroxide LIQ* [Milk of Magnesia LIQ*] 30 ml PO BEDTIME PRN 11/13/19 [ History Confirmed 11/13/19] Nitrofurantoin Monohyd/M-Cryst [Macrobid 100 mg Capsule] 100 mg PO BID #10 cap 11/13/19 [Rx] Polyethylene Glycol 3350* [Miralax (17 GM DOSE MARIOLA)] 17 gm PO EVERY OTHER DAY [History Confirmed 11/13/19] Potassium Gluconate [Potassium] 600 mg PO DAILY 11/13/19 [History Confirmed ] Triamterene/HCTZ 37.5-25 MG* [Dyazide CAP*] 0.5 - 1 tab PO DAILY 11/13/19 [ History Confirmed 11/13/19] Warfarin TAB(*) [Coumadin TAB(*)] 1.25 mg PO SUTUWETHSA 11/13/19 [History Confirmed 11/13/19] Warfarin TAB(*) [Coumadin TAB(*)] 2.5 mg PO MOFR 11/13/19 [History Confirmed ] traMADol TAB* [Ultram*] 50 mg PO Q6HR PRN #20 tab MDD 4 11/13/19 [Rx] PMH/Surg Hx/FS Hx/Imm Hx Endocrine/Hematology History: Reports: Hx Anticoagulant Therapy - On 12/11 INR was 3.5, Hx Blood Transfusions, Hx Thyroid Disease Denies: Hx Diabetes Cardiovascular History: Reports: Hx Coronary Artery Disease - CAROTID ARTERY, Hx Hypercholesterolemia, Hx Hypertension, Hx Pacemaker/ICD, Hx Valvular Heart Disease, Other Cardiovascular Problems/Disorders Denies: Hx Angina - JAW ACHE LEFT, Hx Congestive Heart Failure, Hx Deep Vein Thrombosis, Hx Myocardial Infarction Respiratory History: Reports: Hx Chronic Obstructive Pulmonary Disease (COPD) - THINK MAYBE Denies: Hx Asthma, Hx Lung Cancer, Hx Pneumonia, Hx Pulmonary Embolism GI History: Reports: Hx Gall Bladder Disease - cholecystectomy Denies: Hx Gastrointestinal Bleed, Hx Ulcer, Hx Urosepsis History: Denies: Hx Kidney Stones, Hx Renal Disease Musculoskeletal History: Reports: Hx Arthritis Sensory History: Reports: Hx Cataracts - BILATARAL, Hx Contacts or Glasses, Hx Hearing Problem Denies: Hx Eye Injury, Hx Hearing Aid Opthamlomology History: Reports: Hx Cataracts - BILATARAL, Hx Contacts or Glasses Denies: Hx Eye Injury Neurological History: Reports: Hx Migraine - HX OF -NONE RECENTLY Denies: Hx Dementia, Hx Seizures, Hx Transient Ischemic Attacks (TIA) Psychiatric History: Reports: Hx Anxiety Denies: Hx Depression, Hx Schizophrenia, Hx Bipolar Disorder - Surgical History Surgical History: Yes Surgery Procedure, Year, and Place: PACEMAKER; [place] Hx Anesthesia Reactions: No - Immunization History Date of Tetanus Vaccine: PT STATES UNSURE Date of Influenza Vaccine: NONE Infectious Disease History: No Infectious Disease History: Denies: Hx Clostridium Difficile, Hx Hepatitis, Hx Human Immunodeficiency Virus (HIV), Hx of Known/Suspected MRSA, Hx Shingles, Hx Tuberculosis, Hx Known/ Suspected VRE, Hx Known/Suspected VRSA, History Other Infectious Disease, Traveled Outside the [place] in Last 30 Days - Family History Known Family History: Positive: Cardiac Disease, Hypertension - Social History Alcohol Use: None Hx Substance Use: No Substance Use Type: Reports: None Hx Tobacco Use: Yes Smoking Status (MU): Heavy Every Day Tobacco Smoker Type: Cigarettes Amount Used/How Often: 1 ppd Length of Time of Smoking/Using Tobacco: SINCE AGE 19 Have You Smoked in the Last Year: Yes Review of Systems Negative: Fever, Chills Positive: Abdominal Pain - RLQ radiating into the back. Negative: Vomiting, Diarrhea, Nausea, Other - constipation Positive: no symptoms reported All Other Systems Reviewed And Are Negative: Yes Physical Exam - Summary Physical Exam Summary: Appearance: The patient is well-nourished in no acute distress and in no acute pain. Skin: The skin is warm and dry, and skin color reflects adequate perfusion. HEENT: The head is normocephalic and atraumatic. The pupils are equal and reactive. The conjunctivae are clear and without drainage. Nares are patent and without drainage. Mouth reveals moist mucous membranes, and the throat is without erythema and exudate. The external ears are intact. The ear canals are patent and without drainage. The tympanic membranes are intact. Neck: The neck is supple with full range of motion and non-tender. There are no carotid bruits. There is no neck vein distension. Respiratory: Chest is non-tender. Lungs are clear to auscultation and breath sounds are symmetrical and equal. Cardiovascular: Heart is regular rate and rhythm. There is no murmur or rub auscultated. There is no peripheral edema and pulses are symmetrical and equal. Abdomen: The abdomen is soft although tender in the right flank. Straight leg test is negative. There are normal bowel sounds heard in all four quadrants and there is no organomegaly palpated. Musculoskeletal: There is no back tenderness noted. Extremities are non-tender with full range of motion. There is good capillary refill. There is no peripheral edema or calf tenderness elicited. Neurological: Patient is alert and oriented to person, place and time. The patient has symmetrical motor strength in all four extremities. Cranial nerves are grossly intact. Deep tendon reflexes are symmetrical and equal in all four extremities. Psychiatric: The patient has an appropriate affect and does not exhibit any anxiety or depression. Triage Information Reviewed: Yes Vital Signs On Initial Exam: Initial Vitals Temp Pulse Resp BP Pulse Ox 97.5 F 85 19 198/132 96 11/13/19 10:01 11/13/19 10:01 11/13/19 10:11/13/19 10:01 11/13/19 10:01 Vital Signs Reviewed: Yes Procedures - Sedation Patient Received Moderate/Deep Sedation with Procedure: No Diagnostics - Vital Signs Vital Signs Temp Pulse Resp BP Pulse Ox 11/13/19 10:10 72 97 11/13/19 10:09 74 197/99 98 11/13/19 10:01 97.5 F 85 19 198/132 96 - Laboratory Result Diagrams: 11/13/19 10:54 11/13/19 10:54 Lab Statement: Any lab studies that have been ordered have been reviewed, and results considered in the medical decision making process. - CT Abdomen/Pelvis CT CT Interpretation Completed By: Radiologist Summary of CT Findings: Impression: 1. Atrophic right kidney. 2. Atherosclerotic aorta with ectasia of the abdominal aorta. 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 3. No fracture of the lumbar spine is noted. Degenerative disc disease at L3-4 and L2-3 is present. This imaging report was reviewed by Dr. Farmer. Lumbar Spine CT CT Interpretation Completed By: Radiologist Summary of CT Findings: Impression: 1. Atrophic right kidney. 2. Atherosclerotic aorta with ectasia of the abdominal aorta. 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 3. No fracture of the lumbar spine is noted. Degenerative disc disease at L3-4 and L2-3 is present. This imaging report was reviewed by Dr. Farmer. Re-Evaluation - Re-Evaluation First Eval Re-Evaluation Time: 14:10 Change: Improved Comment: We discussed all results and plan for discharge. Abdominal Pain Fem Course/Dx - Course Course Of Treatment: Ms. Rodriguez presented complaining of right flank pain. She was mildly tender in the right flank. She was intact neurologically he had a negative straight leg raise. Labs were unremarkable as was a noncontrast CT scan. My sense is that this is musculoskeletal from her back but she does have an equivocal urine and I'm going to treat her for UTI as well as give her some tramadol which she has used in the past for her back pain and get her close follow-up. - Diagnoses Provider Diagnoses: Back pain, UTI (urinary tract infection) Discharge ED - Sign-Out/Discharge Documenting (check all that apply): Patient Departure - Patient will be discharged home. - Discharge Plan Condition: Stable Disposition: HOME Prescriptions: Nitrofurantoin Monohyd/M-Cryst [Macrobid 100 mg Capsule] 100 mg PO BID #10 cap traMADol TAB* [Ultram*] 50 mg PO Q6HR PRN #20 tab MDD 4 PRN Reason: Pain Patient Education Materials: Back Pain (ED), Urinary Tract Infection in Older Adults (ED) Referrals: Cathy Andrade MD [Primary Care Provider] - 3 Days Additional Instructions: Please take medications as prescribed. Follow up with your primary care provider in 2-3 days. Return to the emergency department for any new or worsening symptoms. - Billing Disposition and Condition Condition: STABLE Disposition: Home - Attestation Statements Document Initiated by Beatrice: Yes Documenting Scribe: Alexandra Wu Provider For Whom Beatrice is Documenting (Include Credential): Dr. Garth Farmer MD Scribe Attestation: Alexandra Greenberg scribed for Dr. Garth Farmer MD on 11/13/19 at 1512. Scribe Documentation Reviewed: Yes Provider Attestation: The documentation as recorded by the Alexandra bhat accurately reflects the service I personally performed and the decisions made by me, Dr. Garth Farmer MD Status of Scribarnel Document: Viewed
--- OUTSIDE RECORDS SUMMARY | 2019-11-13 10:56 | XMS REPORT | Summary of Care ---
:1940 Author Organization [facility] Address [address] [facility] [place] [address] Care Team Providers Name Role Phone Cathy Andrade Primary Care Provider Reason for Visit Reason Comments Medication Refill Reference #: [id number] Anxiety Encounter Details Date Type Department Care Team Description 10/20/2019 Office Visit [facility] Cathy Andrade MD Anxiety (Primary Dx); Medicine [address] B12 deficiency; [address] [place] [address] Essential hypertension; [place] [address] Smoking; [phone] Lipid disorder; History of colon polyps Allergies Active Allergy Reactions Severity Noted Date Comments Sulfa Antibiotics Rash 06/17/2013 Simvastatin Unknown Reaction 11/29/2007 documented as of this encounter (statuses as of 10/20/2019) Medications Medication Sig Dispensed Refills Start Date End Date Status Polyethylene Glycol Take by mouth 0 Active 3350 (MIRALAX PO) EVERY OTHER DAY. colchicine Take 1 Tab by 60 Tab 2 05/04/2016 Active (COLSALIDE) 0.6 MG mouth TWICE Oral Tab DAILY. acetaminophen Take by 0 Active (TYLENOL 8 HOUR mouth. ARTHRITIS PAIN) 650 MG Oral Tab CR atorvastatin Take 1 Tab by 90 Tab 3 02/03/2017 Active (LIPITOR) 20 MG mouth DAILY. Oral Tab fluticasone 0 02/01/2018 Active (FLONASE) 50 MCG/ACT Nasal Suspension metoprolol Take 25 mg by 0 Active succinate (TOPROL mouth DAILY. XL) 25 MG Oral TABLET SR 24 HR magnesium hydroxide Take 30 mL by 0 Active (MILK OF MAGNESIA mouth EVERY PO SUSP 400 MG/5 ML BEDTIME 180 ML, ODD DOSES, NEEDED. ) 400 MG/5ML Oral 05/06/18 am - Suspension 2TBSP then repeat in 2hours in no results levothyroxine TAKE ONE 90 Tab 1 01/24/2019 Active (SYNTHROID) 88 MCG TABLET BY Oral MOUTH EVERY TabIndications: DAY Other specified hypothyroidism allopurinol TAKE ONE 90 Tab 3 01/23/2019 Active (ZYLOPRIM) 100 MG TABLET BY Oral MOUTH EVERY TabIndications: DAY Acute gout, unspecified cause, unspecified site ezetimibe (ZETIA) Take 1 Tab by 90 Tab 3 03/10/2019 Active 10 MG Oral Tab mouth DAILY. lisinopril TAKE ONE 180 Tab 3 04/28/2019 Active (PRINIVIL, ZESTRIL) TABLET BY 20 MG Oral MOUTH TWICE A TabIndications: DAY Mixed hyperlipidemia Potassium Take by 0 Active (POTASSIMIN PO) mouth. warfarin (COUMADIN) Take 0.5-1 90 Tab 3 08/25/2019 Active 2.5 MG Oral Tabs by mouth TabIndications: DAILY. As Atrial directed which fibrillation, is 2.5mg Mon unspecified type and Fri. (HCC) 1.25mg remaining days of week triamterene-hydroch TAKE ONE-HALF 90 Tab 3 09/18/2019 Active lorothiazide TO ONE TABLET (DYAZIDE/MAXZIDE) BY MOUTH ONCE 37.5-25 MG Oral DAILY TabIndications: Essential hypertension Cyanocobalamin Take 1 Tab by 90 Tab 3 10/20/2019 Active (VITAMIN B-12) 1000 mouth DAILY. MCG Oral TabIndications: B12 deficiency clonazePAM Take 1 Tab by 60 Tab 0 10/20/2019 Active (KLONOPIN) 0.5 MG mouth TWO Oral TIMES DAILY TabIndications: NEEDED Anxiety (anxiety). Max Daily Amount: 2 Tabs. clobetasol (CORMAX) Apply as 15 g 1 03/17/2017 10/20/19 Discontinued 0.05 % Apply directed 20 (Patient stopped externally the medication) OintmentIndications : Lichen sclerosus of female genitalia Triamcinolone [place] in 0 10/20/19 Discontinued Acetonide (NASACORT nose. 20 (Patient stopped ALLERGY 24HR NA) the medication) clonazePAM Take 1 Tab by 60 Tab 0 06/05/2019 10/20/19 Discontinued (KLONOPIN) 0.5 MG mouth TWO 20 (Reorder) Oral TIMES DAILY TabIndications: NEEDED Anxiety (anxiety). Max Daily Amount: 2 Tabs. fluocinonide Apply twice to 15 g 1 06/05/2019 10/20/19 Discontinued (LIDEX) 0.05 % right scapula 20 (Patient stopped Apply externally area the medication) CreamIndications: Pruritic dermatitis Cyanocobalamin TAKE ONE 90 Tab 3 09/18/2019 10/20/19 Discontinued (VITAMIN B-12) 1000 TABLET BY 20 (Reorder) MCG Oral MOUTH EVERY TabIndications: B12 DAY deficiency metroNIDAZOLE Take by 0 10/20/19 Discontinued (FLAGYL PO) mouth. 20 (Patient stopped the medication) clonazePAM Take 1 Tab by 60 Tab 0 10/20/2019 10/20/19 Discontinued (KLONOPIN) 0.5 MG mouth TWO 20 (Reorder) Oral TIMES DAILY TabIndications: NEEDED Anxiety (anxiety). Max Daily Amount: 2 Tabs. documented as of this encounter (statuses as of 10/20/2019) Active Problems Problem Noted Date Paroxysmal atrial fibrillation 03/30/2019 Primary osteoarthritis of right knee 03/16/2019 Pes anserine bursitis 03/16/2019 Peripheral vascular disease 01/04/2019 Overview: HAMLET Right .89 Left. 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 Pacemaker 03/14/2010 Overview: Placed for rate control With treatment of afib - Dr Carter - ~ 2004 Left knee DJD 02/10/2010 Heme positive stool 08/14/2009 Overview: Tubular adenoma 07/29 - Repeat in 5 years - [address] Black Mixed hyperlipidemia 06/13/2009 Smoking 04/25/2009 Overview: Care plan done half-way current use of anticoagulant therapy 11/12/2008 Overview: Managed by: [facility] Referring Provider: Fede Indication: afib Target Range: 2.0-3.0 Duration: Indefinite Additional factors influencing anticoagulation: CHADS2 score of 3 for age > 75, hypertension, LV dysfunction [id number] score of 6 for age > 75, hypertension, LV dysfunction, female gender, vascular disease Allopurinol increases warfarin effect Levothyroxine increases warfarin effect Updated Referral: 06/2011, 07/2013, 08/2014,09/2015, 10/27/16, 01/10/18, 03/2019 Updated ACS OrderS: 08/01/13, 09/05/14, 10/25/15, 11/18/16, 02/15/18, 04/17/19 Hypothyroidism 11/29/2007 Essential hypertension 11/29/2007 Overview: Care plan done 09/02 Dysfunction of eustachian tube 11/29/2007 Nicotine dependence 11/29/2007 Carotid Artery Stenosis 11/29/2007 documented as of this encounter (statuses as of 10/20/2019) Resolved Problems Problem Noted Date Resolved Date A-fib 07/31/2013 03/24/2019 Overview: Ablation and pacer - placed Cath ~ 2011- Last exercise stress test - 12/01- negative Chronic afib present - followed by Dr Carter Paroxysmal atrial fibrillation 12/23/2010 03/24/2019 Anticoagulant long-term use 12/23/2010 09/11/2014 Encounter for therapeutic drug monitoring 03/28/2010 11/04/2010 Atrial fibrillation 11/29/2007 12/23/2010 Overview: Paroxysmal- cardiovert again - and started on coumadin; NSR documented as of this encounter (statuses as of 10/20/2019) Immunizations Name Administration Dates Next Due Pneumococcal Conjugate(13 Valent) 01/04/2019 documented as of this encounter Social History Tobacco Use Types Packs/Day Years Used Date Current Every Day Smoker Cigarettes 1 Smokeless Tobacco: Never Used Alcohol Use Drinks/Week oz/Week Comments No 0 Standard drinks or equivalent 0.0 Sex Assigned at Date Recorded Not on file Job Start Date Occupation Industry Not on file Not on file Not on file Travel History Travel Start Travel End No recent travel history available. documented as of this encounter Last Filed Vital Signs Vital Sign Reading Time Taken Comments Blood Pressure 136/86 10/20/2019 8:49 AM EST Pulse 80 10/20/2019 8:49 AM EST Temperature - - Respiratory Rate - - Oxygen Saturation 97% 10/20/2019 8:49 AM EST Inhaled Oxygen Concentration - - Weight 74 kg (163 lb 1.6 oz) 10/20/2019 8:49 AM EST Height 165.1 cm (5' 5") 10/20/2019 8:49 AM EST Body Mass Index 27.14 10/20/2019 8:49 AM EST documented in this encounter Patient Instructions Patient InstructionsCreCathy magana MD - 10/20/2019 9:00 AM ESTPatient Education Lower Extremity Exercises Seated About this topic Some people are not able to stand or have problems with balance. You can still safely exercise whileseated in a chair. If you have a desk job, doing exercises while seated at your desk can also be helpful. There are many different exercises that you can do to help keep your legs strong and moving well. General Before starting with a program, ask your doctor if you are healthy enough to do these exercises. Your doctor may have you work with a new product trainer or physical therapist to make a safe exercise program to meet your needs. Stretching Exercises Stretching exercises keep your muscles flexible. They also stop them from getting tight. Start by doing each of these stretches 2 to 3 times. In order for your body to make changes, you will need to hold these stretches for 20 to 30 seconds. Repeat each exercise 2 to 3 times each day. Do all exercisesslowly. Hamstring stretches seated ? Sit up straight on the edge of a chair. Make sure you keep your back straight. Straighten your knee on your left leg. Keep your heel on the floor. Bend forward at the waist towards your foot while keeping your upper back straight. Bend forward until you feel a stretchin the back of your thigh. Repeat on the other leg. Calf stretches seated with belt or towel ? Sit on a chair or on the floor with your legs straight out in front of you. Loop a belt or towel around the ball of one foot. Pull on the towel until youfeel a stretch in the back of your calf. Repeat on the other foot. You can also do this same stretchwhile lying down on your back with the knee straight and foot up in the air. Strengthening Exercises Strengthening exercises keep your muscles firm and strong. Be sure to use good posture. Start by repeating each exercise 2 to 3 times. Work up to doing each exercise 10 times. Try to do the exercises 2to 3 times each day. Do all exercises slowly. Marching ? March while sitting down. Sit up straight and do not lean back. Pick one leg up at atime. Do this exercise in slow motion to make it more difficult. Thigh squeezes ? Place a small pillow or ball in between your knees. Squeeze your thighs together and hold 3 to 5 seconds. Ankle alphabet seated Straighten your knee on your left leg. Act like you are writing the alphabet with each foot. Do all of the alphabet. Repeat on the other leg. Take short rests if you get tired. If it is too hard to do the entire alphabet, try writing different words when watching commercials on TV. Making really big letters will help strengthen the hip, knee , and ankle. Ankle pumps seated ? Move each foot up and down like you are pressing down and lifting up on a gas pedal. What will the results be? Stronger muscles Better flexibility and range of motion Less muscle tightness Easier to walk and do other activities Helpful tips Stay active and work out to keep your muscles strong and flexible. Keep a healthy weight so there is not extra stress on your joints. Eat a healthy diet to keep your muscles healthy. Be sure you do not hold your breath when exercising. This can raise your blood pressure. If youtend to hold your breath, try counting out loud when exercising. If any exercise bothers you, stop right away. Always warm up before stretching. Heated muscles stretch much easier than cool muscles. Stretching cool muscles can lead to injury. Try walking or cycling at an easy pace for a few minutes to warm up your muscles. Do this againafter exercising. Never bounce when doing stretches. If you like to watch TV, try doing one or two of these exercises at each commercial. Doing exercises before a meal may be a good way to get into a routine. Exercise may be slightly uncomfortable, but you should not have sharp pains. If you do get sharp pains, stop what you are doing. If the sharp pains continue, call your doctor. Where can I learn more? NHS Choices http://www.nhs.uk/Tools/Pages/Qtiawuwme-zmg-uojuh-people.aspx Last Reviewed Date 2019-05-31 Consumer Information Use and Disclaimer This information is not specific medical advice and does not replace information you receive from your health care provider. This is only a brief summary of general information. It does NOT include allinformation about conditions, illnesses, injuries, tests, procedures, treatments, therapies, discharge instructions or life-style choices that may apply to you. You must talk with your health care provider for complete information about your health and treatment options. This information should not beused to decide whether or not to accept your health care providers advice, instructions or recommendations. Only your health care provider has the knowledge and training to provide advice that isright for you. Copyright Copyright 2019 [employer] and its affiliates and/or licensors. All rights reserved. documented in this encounter Progress Notes Cathy Andrade MD - 10/20/2019 9:00 AM EST NAME:China Rodriguez 1940: 1940 E[place] Date: 10/20/2019 CC: Chief Complaint Patient presents with Medication Refill Reference #: [id number] Anxiety China Rodriguez is a 78-y.o. female Feeling low energy - 1. Here for medication refill- Stable anxiety - Risk benefit of the medication is reviewed 2. b12 deficiency 3. Follows with Dr Carter for biventricular ICVD pacer for parox afib - Feeling tired in fibrillation which is constant - Last shock 07/08 - lasted 3 weeks - [place] better when not in fibrillation - 4 Received reminder for colon - but physical condition is weak and on blood thinner - on review of chart polyp in question is hyperplastic - we agreed that she does not need to have done- 5. Balance is off - Discussed Physical Therapy and home exercises - Current Outpatient Medications Medication Sig acetaminophen (TYLENOL 8 HOUR ARTHRITIS PAIN) 650 MG Oral Tab CR Take by mouth. allopurinol (ZYLOPRIM) 100 MG Oral Tab TAKE ONE TABLET BY MOUTH EVERY DAY atorvastatin (LIPITOR) 20 MG Oral Tab Take 1 Tab by mouth DAILY. clonazePAM (KLONOPIN) 0.5 MG Oral Tab Take 1 Tab by mouth TWO TIMES DAILY NEEDED (anxiety). Max Daily Amount: 2 Tabs. colchicine (COLSALIDE) 0.6 MG Oral Tab Take 1 Tab by mouth TWICE DAILY. Cyanocobalamin (VITAMIN B-12) 1000 MCG Oral Tab Take 1 Tab by mouth DAILY. ezetimibe (ZETIA) 10 MG Oral Tab Take 1 Tab by mouth DAILY. fluticasone (FLONASE) 50 MCG/ACT Nasal Suspension levothyroxine (SYNTHROID) 88 MCG Oral Tab TAKE ONE TABLET BY MOUTH EVERY DAY lisinopril (PRINIVIL, ZESTRIL) 20 MG Oral Tab TAKE ONE TABLET BY MOUTH TWICE A DAY magnesium hydroxide (MILK OF MAGNESIA PO SUSP 400 MG/5 ML 180 ML, ODD DOSES, ) 400 MG/5ML Oral Suspension Take 30 mL by mouth EVERY BEDTIME NEEDED. 05/06/18 am - 2TBSP then repeat in 2hours inno results metoprolol succinate (TOPROL XL) 25 MG Oral TABLET SR 24 HR Take 25 mg by mouth DAILY. Polyethylene Glycol 3350 (MIRALAX PO) Take by mouth EVERY OTHER DAY. Potassium (POTASSIMIN PO) Take by mouth. triamterene-hydrochlorothiazide (DYAZIDE/MAXZIDE) 37.5-25 MG Oral Tab TAKE ONE-HALF TO ONE TABLET BY MOUTH ONCE DAILY warfarin (COUMADIN) 2.5 MG Oral Tab Take 0.5-1 Tabs by mouth DAILY. As directed which is 2.5mg Mon and Fri. 1.25mg remaining days of week No current facility-administered medications for this visit. Patient Active Problem List Diagnosis Date Noted Paroxysmal atrial fibrillation (HCC) 03/30/2019 Primary osteoarthritis of right knee 03/16/2019 Pes anserine bursitis 03/16/2019 Peripheral vascular disease (HCC) 01/04/2019 HAMLET Right .89 Left. .64 Chronic kidney disease (CKD), stage III (moderate) (HCC) 07/04/2018 Based on recent lab work, may be transient Coprostasis (HCC) 06/16/2018 Renal artery stenosis (HCC) 04/01/2017 Right - Seen on ct scan - Right renal artery smaller with thinning cortex Nonischemic cardiomyopathy (HCC) 04/16/2016 Chronic atrial fibrillation 10/15/2015 Diverticulosis 07/25/2014 Colon 05/03- Diverticular disease noted Atrophic vulva 12/01/2013 Lichen sclerosis Proctalgia fugax 08/22/[address] García B12 deficiency 03/09/2012 BMI 30.0-30.9,adult 03/05/2011 This patient's BMI has been calculated and is above average, and BMI management plan is completed. Pacemaker 03/14/2010 Placed for rate control With treatment of afib - Dr Carter - ~ 2004 Left knee DJD 02/10/2010 Heme positive stool 08/14/2009 Tubular adenoma 07/29 - Repeat in 5 years - Dr Black Mixed hyperlipidemia 06/13/2009 Smoking 04/25/2009 Care plan done half-way current use of anticoagulant therapy 11/12/2008 Managed by: [facility] Referring Provider: Fede Indication: afib Target Range: 2.0-3.0 Duration: Indefinite Additional factors influencing anticoagulation: CHADS2 score of 3 for age > 75, hypertension, LV dysfunction [id number] score of 6 for age > 75, hypertension, LV dysfunction , female gender, vascular disease Allopurinol increases warfarin effect Levothyroxine increases warfarin effect Updated Referral: 06/2011, 07/2013, 08/2014,09/2015, 10/27/16, 01/10/18, 03/2019 Updated ACS OrderS: 08/01/13, 09/05/14, 10/25/15, 11/18/16, 02/15/18, 04/17/19 Hypothyroidism 11/29/2007 Essential hypertension 11/29/2007 Care plan done 09/02 Dysfunction of eustachian tube 11/29/2007 Nicotine dependence 11/29/2007 Carotid Artery Stenosis 11/29/2007 Family History Problem Relation Age of Onset Cancer Brother Throat cancer Cancer Brother brain cancer Diabetes Sister Heart Sister heart triple bypass Hypertension Mother Cancer Mother leukemia Breast Cancer Maternal Grandmother No cardiopulmonary symptoms No upper or lower GI complaints No urinary tract symptoms. No bruising/ bleeding. No neurological complaints . No insomnia.+ . Social History Tobacco Use Smoking status: Current Every Day Smoker Packs/day: 1.00 Types: Cigarettes Smokeless tobacco: Never Used Substance Use Topics Alcohol use: No Alcohol/week: 0.0 standard drinks Drug use: No OBJECTIVE: BP 136/86 | Pulse 80 | Ht 5' 5" (1.651 m) | Wt 163 lb 1.6 oz (74 kg) | SpO2 97% | BMI 27.14 kg/m . Heent neg Neck no JVD, thyromegaly or bruit Lungs Clear CV rrr Abd soft, nontender, no organomegaly Ext no edema; Neuro: intellect intact ; motor including gait unremarkable A/P ICD-9-CM ICD-10-CM 1. Anxiety 300.00 F41.9 clonazePAM (KLONOPIN) 0.5 MG Oral Tab DISCONTINUED: clonazePAM (KLONOPIN) 0.5 MG Oral Tab 2. B12 deficiency 266.2 E53.8 Cyanocobalamin (VITAMIN B-12) 1000 MCG Oral Tab 3. Essential hypertension 401.9 I10 4. Smoking 305.1 F17.200 5. Lipid disorder 272.9 E78.9 6. History of colon polyps V12.72 Z86.010 Patient Instructions Patient Education Lower Extremity Exercises Seated About this topic Some people are not able to stand or have problems with balance. You can still safely exercise whileseated in a chair. If you have a desk job, doing exercises while seated at your desk can also be helpful. There are many different exercises that you can do to help keep your legs strong and moving well. General Before starting with a program, ask your doctor if you are healthy enough to do these exercises. Your doctor may have you work with a new product trainer or physical therapist to make a safe exercise program to meet your needs. Stretching Exercises Stretching exercises keep your muscles flexible. They also stop them from getting tight. Start by doing each of these stretches 2 to 3 times. In order for your body to make changes, you will need to hold these stretches for 20 to 30 seconds. Repeat each exercise 2 to 3 times each day. Do all exercisesslowly. Hamstring stretches seated ? Sit up straight on the edge of a chair. Make sure you keep your back straight. Straighten your knee on your left leg. Keep your heel on the floor. Bend forward at the waist towards your foot while keeping your upper back straight. Bend forward until you feel a stretchin the back of your thigh. Repeat on the other leg. Calf stretches seated with belt or towel ? Sit on a chair or on the floor with your legs straight out in front of you. Loop a belt or towel around the ball of one foot. Pull on the towel until youfeel a stretch in the back of your calf. Repeat on the other foot. You can also do this same stretchwhile lying down on your back with the knee straight and foot up in the air. Strengthening Exercises Strengthening exercises keep your muscles firm and strong. Be sure to use good posture. Start by repeating each exercise 2 to 3 times. Work up to doing each exercise 10 times. Try to do the exercises 2to 3 times each day. Do all exercises slowly. Marching ? March while sitting down. Sit up straight and do not lean back. Pick one leg up at atime. Do this exercise in slow motion to make it more difficult. Thigh squeezes ? Place a small pillow or ball in between your knees. Squeeze your thighs together and hold 3 to 5 seconds. Ankle alphabet seated Straighten your knee on your left leg. Act like you are writing the alphabet with each foot. Do all of the alphabet. Repeat on the other leg. Take short rests if you get tired. If it is too hard to do the entire alphabet, try writing different words when watching commercials on TV. Making really big letters will help strengthen the hip, knee , and ankle. Ankle pumps seated ? Move each foot up and down like you are pressing down and lifting up on a gas pedal. What will the results be? Stronger muscles Better flexibility and range of motion Less muscle tightness Easier to walk and do other activities Helpful tips Stay active and work out to keep your muscles strong and flexible. Keep a healthy weight so there is not extra stress on your joints. Eat a healthy diet to keep your muscles healthy. Be sure you do not hold your breath when exercising. This can raise your blood pressure. If youtend to hold your breath, try counting out loud when exercising. If any exercise bothers you, stop right away. Always warm up before stretching. Heated muscles stretch much easier than cool muscles. Stretching cool muscles can lead to injury. Try walking or cycling at an easy pace for a few minutes to warm up your muscles. Do this againafter exercising. Never bounce when doing stretches. If you like to watch TV, try doing one or two of these exercises at each commercial. Doing exercises before a meal may be a good way to get into a routine. Exercise may be slightly uncomfortable, but you should not have sharp pains. If you do get sharp pains, stop what you are doing. If the sharp pains continue, call your doctor. Where can I learn more? NHS Choices http://www.nhs.uk/Tools/Pages/Gfumiaffn-bmk-hgazn-people.aspx Last Reviewed Date 2019-05-31 Consumer Information Use and Disclaimer This information is not specific medical advice and does not replace information you receive from your health care provider. This is only a brief summary of general information. It does NOT include allinformation about conditions, illnesses, injuries, tests, procedures, treatments, therapies, discharge instructions or life-style choices that may apply to you. You must talk with your health care provider for complete information about your health and treatment options. This information should not beused to decide whether or not to accept your health care providers advice, instructions or recommendations. Only your health care provider has the knowledge and training to provide advice that isright for you. Copyright Copyright 2019 [employer] and its affiliates and/or licensors. All rights reserved. AUTHOR: Cathy Andrade MD 09:27 10/20/2019 documented in this encounter Plan of Treatment Date Type Specialty Care Team Description 11/15/2019 AntiCoag Anticoagulation 04/19/2020 Office Visit Internal Medicine Cathy Andrade MD [address] [place] [address] [phone] Health Maintenance Due Date Last Done Comments MEDICARE ANNUAL WELLNESS 1940 VISIT Colonoscopy 04/27/2019 04/27/2014, 08/30/2009, 08/30/2009, Additional history exists OSTEOPOROSIS SCREENING 06/13/2019 06/13/2009 (Previously completed) PNEUMOCOCCAL 65+YRS (2 of 2 01/05/2020 01/04/2019 - PPSV23) DTaP/Tdap/Td Vaccines (1 - 01/14/2020 Postponed from Tdap) 11/23/1951 (Patient refused) DEPRESSION SCREENING 03/08/2020 03/08/2019 FALL RISK ASSESSMENT 03/08/2020 03/08/2019, 03/08/2019 ZOSTER IMMUNIZATION SERIES 10/19/2020 Postponed from (1 of 2) 1990 (Vaccine not available) HEPATITIS A IMMUNIZATION Aged Out No longer eligible SERIES based on patient's age to complete this topic HPV IMMUNIZATION SERIES Aged Out No longer eligible based on patient's age to complete this topic MENINGOCOCCAL VACCINE IMM Aged Out No longer eligible based on patient's age to complete this topic documented as of this encounter Goals Goal Patient Goal Associated Recent Patient-Stated? Author Type Problems Progress Blood Pressure Blood Pressure Essential 136/86 No [place], < 140/90 hypertension (10/20/2019 MD Cathy 8:49 AM EST) Note: Hypertension Care Plan Based on the patient's clinical history and according to JNC 8 guidelines target blood pressure goal is less than 140/90. Based on the patient's last blood pressure of BP: 146/82 mmHg the patient is at at goal. As your provider, it is important that I advise you regarding: your current medications and help you with any challenges you may face taking your medications as directed (ex. instructions, cost, side effects, and interactions). lifestyle changes: exercise, weight reduction, diet, dietary sodium reduction and medication compliance your clinical goals and how you can achieve success: exercise plan, diet improvements and smoking cessation medication management: adjusted medications as appropriate patient education/self-management tools provided: Current self-management tools adequate To successfully manage my Hypertension I will: monitor my blood pressure daily, understanding that my goal is less than 140/ 90 per my healthcare provider's recommendation. I will schedule an appointment with my provider if consistent abnormal readings greater than 160/100. take medications every day as prescribed by my healthcare provider and if unable to take them I will discuss with my provider. monitor for symptoms of chest pain, chest tightness/pressure, irregular heartbeat, persistent dizziness, radiating arm pain, and neck or jaw pain. If any of these symptoms are noticed I will seek medical attention immediately by calling 911 exercise/walk 15 minutes 5 day(s) per week. If I experience chest pain, chest tightness, or shortness of breath, I will seek medical attention immediately. follow a diet rich in fruits, vegetables, and low-fat dairy products with reduced content of saturated & total fat. I will reduce my sodium intake daily. An example is the DASH diet. To obtain more information please refer to the DASH Eating Plan listed in Educational Resources. record my blood pressure results. [employer] is safe and secure way for you to do this in your medical record online. try to obtain an ideal body weight. My recent weight was Weight: 175 lb ( 79.379 kg). My weight loss goal for my next office visit is 5 lbs limit alcohol consumption. For men two drinks per day and women one drink per day. if currently smoking, will discuss how to quit smoking with my healthcare provider and work towards quitting. Educational Resources: National Heart, Lung, & Blood [place] http://nhlbi.nih.gov/hbp/index.html The DASH Diet Eating Plan http://www.nhlbi.nih.gov/health/health-topics/ topics/dash/ Academy of Nutrition & DIetetics http://eatright.org National Smoking Cessation Site http://smokefree.gov Blood Pressure < Blood Pressure 136/86 (10/20/2019 Mary Sutton PA -C 150/90 8:49 AM EST) Note: This is an individualized treatment (blood pressure) goal for China Rodriguez: Displayed above (on the left) is your goal for blood pressure control. Your most recent blood pressure is also shown above, on the right. You should try to achieve blood pressures that are lower than your goal listed above (on the left). Lifestyle - Current Smoker Lifestyle Smoking No Cathy Andrade MD Note: Smoking Cessation Plan Discussed smoking cessation with patient. Patient readiness to quit:yes Discussed smoking cessation plan according to AHRQ guidelines:counseled patient on the risks of tobacco use My Quit Plan: My quit date is set for - !!!!!!!!!! Notify my friends, family, and co-workers about decision to quit. Will ask for their support and understanding Remove tobacco products from my environment. I will ask people not to smoke around me or in my home. I will anticipate challenges at the beginning and will try not to be discouraged. To remember the benefits of quitting such as improved health, feeling better about myself, saving money, etc. Reducing stressors and avoiding triggers are essential keys to my success Finding ways to distract myself when I have the urge to smoke such as taking a walk, reading, playing a board game, putting together a puzzle, etc. Taking medications as my healthcare provider has advised to help alleviate the urge to smoke. If I am unable to take the medication, I will discuss further with my healthcare provider. Recognize reasons for relapse in my past attempts. What did and did not work for me Consider connecting with group, individual, or telephone counseling Take all prescribed medications as Self-management No Mary Gonsalves PA-C directed Note: This is an individualized self-management goal for China Rodriguez: Please take all prescribed medications as directed. 1. Do not skip doses. If you cannot afford your medications, talk with your doctor. 2. Use a pill reminder system such as a pill box if needed. Your pharmacist can help you with this. 3. Contact your Pharmacy 5 days before your medication runs out. If you cannot take your medications for any reasons, talk with your doctor. 4. Please bring all of your medication bottles and inhalers (or a list of all your medications/inhalers) with you to every visit. Potential barriers to meeting all of your care plan goals will continue to be addressed on an ongoing basis. documented as of this encounter Results Not on filedocumented in this encounter Visit Diagnoses Diagnosis Anxiety Anxiety state, unspecified B12 deficiency Other B-complex deficiencies Essential hypertension Unspecified essential hypertension Smoking Tobacco use disorder Lipid disorder Unspecified disorder of lipoid metabolism History of colon polyps Personal history of colonic polyps documented in this encounter Insurance Payer Benefit Plan / Subscriber ID Effective Dates Phone Address Type Group AETNA MEDICARE AETNA MEDICARE xxxxxxxx 2016-Present [employer] ADVANTAGE ADVANTAGE Guarantor Name Account Type Relation to Date of Phone Billing Patient Address China Rodriguez Jennifer Personal/Family 1940 [address] (Home) [place], [place] [phone] (Work) documented as of this encounter
--- OUTSIDE RECORDS SUMMARY | 2019-11-13 10:56 | XMS REPORT | Summary of Care ---
:1940 Author Organization [facility] Address [address] [facility] [place] [address] Care Team Providers Name Role Phone Cathy Andrade Primary Care Provider Reason for Visit Reason Comments Back Pain pt states right lower back and right side pain since wednesday. pt says she went to OB last week (11/02/19) and was Dx'd with yeast and bacterial infection. took flagyl for a few days but stoamtarsha couldnt take it ( stopped ) Encounter Details Date Type Department Care Team Description 11/13/2019 Office Visit [place] Mary Shelley, RLQ abdominal pain ( Primary Dx); Practice PA-Bessie Right flank pain [address] [facility] [place] [address] [place] [address] [phone] Allergies Active Allergy Reactions Severity Noted Date Comments Sulfa Antibiotics Rash 06/17/2013 Simvastatin Unknown Reaction 11/29/2007 documented as of this encounter (statuses as of 11/13/2019) Medications Medication Sig Dispensed Refills Start Date End Date Status Polyethylene Glycol Take by mouth 0 Active 3350 (MIRALAX PO) EVERY OTHER DAY. colchicine (COLSALIDE) Take 1 Tab by 60 Tab 2 05/04/2016 Active 0.6 MG Oral Tab mouth TWICE DAILY. acetaminophen (TYLENOL Take by mouth. 0 Active 8 HOUR ARTHRITIS PAIN) 650 MG Oral Tab CR atorvastatin (LIPITOR) Take 1 Tab by 90 Tab 3 02/03/2017 Active 20 MG Oral Tab mouth DAILY. fluticasone (FLONASE) 0 02/01/2018 Active 50 MCG/ACT Nasal Suspension metoprolol succinate Take 25 mg by 0 Active (TOPROL XL) 25 MG Oral mouth DAILY. TABLET SR 24 HR magnesium hydroxide Take 30 mL by 0 Active (MILK OF MAGNESIA PO mouth EVERY SUSP 400 MG/5 ML 180 BEDTIME ML, ODD DOSES, ) 400 NEEDED. 05/06/18 MG/5ML Oral Suspension am - 2TBSP then repeat in 2hours in no results levothyroxine TAKE ONE TABLET 90 Tab 1 01/24/2019 Active (SYNTHROID) 88 MCG Oral BY MOUTH EVERY TabIndications: Other DAY specified hypothyroidism allopurinol (ZYLOPRIM) TAKE ONE TABLET 90 Tab 3 01/23/2019 Active 100 MG Oral BY MOUTH EVERY TabIndications: Acute DAY gout, unspecified cause, unspecified site ezetimibe (ZETIA) 10 MG Take 1 Tab by 90 Tab 3 03/10/2019 Active Oral Tab mouth DAILY. lisinopril (PRINIVIL, TAKE ONE TABLET 180 Tab 3 04/28/2019 Active ZESTRIL) 20 MG Oral BY MOUTH TWICE A TabIndications: Mixed DAY hyperlipidemia Potassium (POTASSIMIN Take by mouth. 0 Active PO) warfarin (COUMADIN) 2.5 Take 0.5-1 Tabs 90 Tab 3 08/25/2019 Active MG Oral TabIndications: by mouth DAILY. Atrial fibrillation, As directed which unspecified type (HCC) is 2.5mg Mon and Fri. 1.25mg remaining days of week triamterene-hydrochloro TAKE ONE-HALF TO 90 Tab 3 09/18/2019 Active thiazide ONE TABLET BY (DYAZIDE/MAXZIDE) MOUTH ONCE DAILY 37.5-25 MG Oral TabIndications: Essential hypertension Cyanocobalamin (VITAMIN Take 1 Tab by 90 Tab 3 10/20/2019 Active B-12) 1000 MCG Oral mouth DAILY. TabIndications: B12 deficiency clonazePAM (KLONOPIN) Take 1 Tab by 60 Tab 0 10/20/2019 Active 0.5 MG Oral mouth TWO TIMES TabIndications: Anxiety DAILY NEEDED (anxiety). Max Daily Amount: 2 Tabs. 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 Heme positive stool 08/14/2009 Overview: Tubular adenoma 07/29 - Repeat in 5 years - Dr Black Mixed hyperlipidemia 06/13/2009 Smoking 04/25/2009 Overview: Care plan done long term acute care registered nurse current use of anticoagulant therapy 11/12/2008 Overview: Managed by: [facility] Referring Provider: Fede Indication: afib Target Range: 2.0-3.0 Duration: Indefinite Additional factors influencing anticoagulation: CHADS2 score of 3 for age > 75, hypertension, LV dysfunction [id number] score of 6 for age > 75, [...] as of this encounter (statuses as of 11/13/2019) Resolved Problems Problem Noted Date Resolved Date A-fib 07/31/2013 03/24/2019 Overview: Ablation and pacer - placed Cath ~ 2011- Last exercise stress test - 12/01- negative Chronic afib present - followed by Dr Madden Paroxysmal atrial fibrillation 12/23/2010 03/24/2019 Anticoagulant long-term use 12/23/2010 09/11/2014 Encounter for therapeutic drug monitoring 03/28/2010 11/04/2010 Atrial fibrillation 11/29/2007 12/23/2010 Overview: Paroxysmal- cardiovert again - and started on coumadin; NSR documented as of this encounter (statuses as of 11/13/2019) Immunizations Name Administration Dates Next Due Pneumococcal Conjugate(13 Valent) 01/04/2019 documented as of this encounter Social History Tobacco Use Types Packs/Day Years Used Date Current Every Day Smoker Cigarettes 1 Smokeless Tobacco: Never Used Alcohol Use Drinks/Week oz/Week Comments No 0 Standard drinks or equivalent 0.0 Sex Assigned at Date Recorded Not on file documented as of this encounter Last Filed Vital Signs Vital Sign Reading Time Taken Comments Blood Pressure 136/78 11/13/2019 9:04 AM EST Pulse 71 11/13/2019 9:04 AM EST Temperature 35.7 11/13/2019 9:04 AM EST C (96.2 F) Respiratory Rate - - Oxygen Saturation 96% 11/13/2019 9:04 AM EST Inhaled Oxygen Concentration - - Weight 73.9 kg (163 lb) 11/13/2019 9:04 AM EST Height 165.1 cm (5' 5") 11/13/2019 9:04 AM EST Body Mass Index 27.12 11/13/2019 9:04 AM EST documented in this encounter Patient Instructions Patient InstructionsDoMary doe PA-C - 11/13/2019 9:00 AM ESTDiscussed with patient, given results of CT scan from 2018, could be appendix problem now Recommended she go to [facility] for evaluation and treatment, she agreed, will drive herself Printed copy of CT Scan ab/pelvis 2017, took with her [employer] called [facility] triage nurse documented in this encounter Progress Notes Mary Gonsalves PA-C - 11/13/2019 9:00 AM EST PATIENT: China Rodriguez : 1940 DATE OF SERVICE: 11/13/2019 REFERRING PRACTITIONER: Cathy Andrade PRIMARY CARE PROVIDER: Cathy Andrade CHIEF COMPLAINT: Chief Complaint Patient presents with ? Back Pain pt states right lower back and right side pain since wednesday. pt says she went to OB last week (11/02/19) and was Dx'd with yeast and bacterial infection. took flagyl for a few days but stoamcah couldnt take it ( stopped ) Subjective HISTORY OF PRESENT ILLNESS: China Rodriguez is a 78-y.o. female who presents with right lower back and right ab pain x 5 days. Says pain is constant getting worse Right now 05/30 She went to OB 11/02/19, diagnose with yeast and bacterial infection, was prescibed flagyl Took it for a few days, but had a lot of stomach upset, stopped taking it 4 days ago -- say she had 2 more days to take Moving bowels normally Breakfast, egg, lees, toast, 1 cup of coffee Lunch: usually skips Dinner: last night -- piece of apple pie and ice cream Drinks good amount of water daily No alcohol Urine has been dark Had gallbladder removed many years ago Has been taking OTC tylenol -- no relief Smoking 1ppd Says 2 yrs ago had similar pain, had CT scan Impression: There is a change in appearance of the appendix since prior study, showing edema at the base of the appendix and fluid distention of midportion toward the distal tip. While pattern might conceivably be the result of developing mucocele, since there was no abnormalities 17 months ago, the possibility of acute appendicitis must be considered. Denies fever, chills, nausea, vomiting, diarrhea, chest pains, SOB, recent injury, strenuous activity Past Medical History: Diagnosis Date ? A-fib (HCC) 07/31/2013 Ablation and pacer - placed Cath ~ 2011- Last exercise stress test - 12/01- negative Chronic afib present - followed by Dr Madden ? Actinic keratosis of multiple sites of head and neck ? Atrial fibrillation (HCC) 11/29/2007 ? B12 deficiency 03/09/2012 ? Carotid Artery Stenosis 11/29/2007 ? Dysfunction of eustachian tube 11/29/2007 ? Hypertension 11/29/2007 ? Hypothyroidism 11/29/2007 ? Nicotine dependence 11/29/2007 ? Other postprocedural status(V45.89) benign biopsy on the ltmany years ago ? Paroxysmal atrial fibrillation (HCC) 12/23/2010 ? Postmenopausal ? Sinus Nasal Congestion 11/29/2007 Past Surgical History: Procedure Laterality Date ? CT INS NEW/RPLC PRM PACEMAKER W/TRANSV ELTRD VENTR 2004 ? CT OPEN CORONARY ENDARTERECTOMY 07/2001 ? CT REMOVAL GALLBLADDER 1991 Family History Problem Relation Age of Onset ? Cancer Brother Throat cancer ? Cancer Brother brain cancer ? Diabetes Sister ? Heart Sister heart triple bypass ? Hypertension Mother ? Cancer Mother leukemia ? Breast Cancer Maternal Grandmother Current Outpatient Medications Medication Sig ? acetaminophen (TYLENOL 8 HOUR ARTHRITIS PAIN) 650 MG Oral Tab CR Take by mouth. ? allopurinol (ZYLOPRIM) 100 MG Oral Tab TAKE ONE TABLET BY MOUTH EVERY DAY ? atorvastatin (LIPITOR) 20 MG Oral Tab Take 1 Tab by mouth DAILY. ? clonazePAM (KLONOPIN) 0.5 MG Oral Tab Take 1 Tab by mouth TWO TIMES DAILY NEEDED (anxiety). Max Daily Amount: 2 Tabs. ? colchicine (COLSALIDE) 0.6 MG Oral Tab Take 1 Tab by mouth TWICE DAILY. ? Cyanocobalamin (VITAMIN B-12) 1000 MCG Oral Tab Take 1 Tab by mouth DAILY. ? ezetimibe (ZETIA) 10 MG Oral Tab Take 1 Tab by mouth DAILY. ? fluticasone (FLONASE) 50 MCG/ACT Nasal Suspension ? levothyroxine (SYNTHROID) 88 MCG Oral Tab TAKE ONE TABLET BY MOUTH EVERY DAY ? lisinopril (PRINIVIL, ZESTRIL) 20 MG Oral Tab TAKE ONE TABLET BY MOUTH TWICE A DAY ? magnesium hydroxide (MILK OF MAGNESIA PO SUSP 400 MG/5 ML 180 ML, ODD DOSES, ) 400 MG/5ML Oral Suspension Take 30 mL by mouth EVERY BEDTIME NEEDED. 05/06/18 am - 2TBSP then repeat in 2hours in no results ? metoprolol succinate (TOPROL XL) 25 MG Oral TABLET SR 24 HR Take 25 mg by mouth DAILY. ? Polyethylene Glycol 3350 (MIRALAX PO) Take by mouth EVERY OTHER DAY. ? Potassium (POTASSIMIN PO) Take by mouth. ? triamterene-hydrochlorothiazide (DYAZIDE/MAXZIDE) 37.5-25 MG Oral Tab TAKE ONE-HALF TO ONE TABLET BY MOUTH ONCE DAILY ? warfarin (COUMADIN) 2.5 MG Oral Tab Take 0.5-1 Tabs by mouth DAILY. As directed which is 2.5mg Mon and Fri. 1.25mg remaining days of week No current facility-administered medications for this visit. Allergies Allergen Reactions ? Sulfa Antibiotics Rash ? Zocor [Simvastatin] Unknown Reaction Social History Socioeconomic History ? Marital status: Spouse name: Not on file ? Number of children: Not on file ? Years of education: Not on file ? Highest education level: Not on file Occupational History ? Not on file Social Needs ? Financial resource strain: Not on file ? Food insecurity Worry: Not on file Inability: Not on file ? Transportation needs Medical: Not on file Non-medical: Not on file Tobacco Use ? Smoking status: Current Every Day Smoker Packs/day: 1.00 Types: Cigarettes ? Smokeless tobacco: Never Used Substance and Sexual Activity ? Alcohol use: No Alcohol/week: 0.0 standard drinks ? Drug use: No ? Sexual activity: Yes Partners: Male Lifestyle ? Physical activity Days per week: Not on file Minutes per session: Not on file ? Stress: Not on file Relationships ? Social connections Talks on phone: Not on file Gets together: Not on file Attends adventist service: Not on file Active member of club or organization: Not on file Attends meetings of clubs or organizations: Not on file Relationship status: Not on file ? Intimate partner violence Fear of current or ex partner: Not on file Emotionally abused: Not on file Physically abused: Not on file Forced sexual activity: Not on file Other Topics Concern ? Back Care Not Asked ? Bike Helmet Not Asked ? Blood Transfusions Not Asked ? Caffeine Concern Not Asked ? Exercise Not Asked ? Hobby Hazards Not Asked ? International Travel Not Asked ? Service Not Asked ? Occupational Exposure Not Asked ? Seat Belt Not Asked ? Self-Exams Not Asked ? Sleep Concern Not Asked ? Special Diet Not Asked ? Stress Concern Not Asked ? Weight Concern Not Asked Social History Narrative ? Not on file REVIEW OF SYSTEMS: Skin: negative skin lesions Eyes: negative visual blurring Ears/Nose/Throat: negative rhinorrhea, sore throat, sinus pressure, post nasal drip Respiratory: negative cough Cardiovascular: negative chest pain Gastrointestinal: positive RLA abdominal pain, right flank pain. Negative constipation, diarrhea, nausea or vomiting Genitourinary: negative burning on urination, dysuria or vaginal discharge Musculoskeletal: positive arthritis/joint pain Neurologic: negative numbness or tingling of feet or hands Psychiatric: positive anxiety Hematologic/Lymphatic/Immunologic: positive allergies Endocrine: positive hypothyroidism Objective PHYSICAL EXAMINATION: VITALS: BP 136/78 (BP Location: Right arm, Patient Position: Sitting) | Pulse 71 | Temp 96.2 F (35.7 C) | Ht 5' 5" (1.651 m) | Wt 163 lb (73.9 kg) | SpO2 96% | BMI 27.12 kg/m Body mass index is 27.12 kg/m. General appearance - alert, moderate distress, cooperative, oriented times 3 Skin - Skin color, texture, turgor normal. No rashes or lesions. Head - Normocephalic. No masses, lesions, tenderness or abnormalities Eyes - conjunctivae/corneas clear. PERRL, EOM's intact. Oropharynx - Lips, mucosa, and tongue normal. Teeth and gums normal. Oropharynx normal. Neck - Neck supple, FROM. No cervical or supraclavicular adenopathy. Thyroid normal, no enlargement Right flank: very tender to light palpation RLQ abdomen: tender to mild palpation, reduced bowel sounds Lungs - Good diaphragmatic excursion. Lungs clear. Chest symmetrical. Normal breath sounds. Heart - RRR. No murmurs, clicks or gallops. No peripheral edema. . IMPRESSION: ICD-9-CM ICD-10-CM 1. RLQ abdominal pain 789.03 R10.31 2. Right flank pain 789.09 R10.9 Plan PLAN: Discussed with patient, given results of CT scan from 2018, could be appendix problem now Recommended she go to [facility] for evaluation and treatment, she agreed, will drive herself Printed copy of CT Scan ab/pelvis 2018, took with her [employer] called [facility] triage nurse More than 50% of the physician/patient and or family encounter was spent with counseling and coordination of care. Total visit time involved was 30 minutes. Author: Mary Gonsalves PA-C 11/13/2019 08:59 documented in this encounter Plan of Treatment Date Type Specialty Care Team Description 11/15/2019 AntiCoag Anticoagulation 04/19/2020 Office Visit Internal Medicine Cathy Andrade MD [address] [id number] [phone] Health Maintenance Due Date Last Done Comments [...] Problems Progress Blood Pressure Blood Pressure Essential 136/78 No [place], < 140/90 hypertension (11/13/2019 MD Cathy 9:04 AM EST) Note: Hypertension Care Plan Based [...] Educational Resources. record my blood pressure results. [employer] is safe and secure way for you [...] Educational Resources: National Heart, Lung, & Blood [place] http://nhlbi.nih.gov/hbp/index.html The DASH Diet Eating Plan http://www.nhlbi.nih.gov/health/health-topics/ topics/dash/ Academy of Nutrition & DIetetics http://eatright.org National Smoking Cessation Site http://smokefree.gov Blood Pressure < Blood Pressure 136/78 (11/13/2019 Mary Sutton PA -C 150/90 9:04 AM EST) Note: This is an individualized treatment (blood pressure) goal for China Rodriguez: Displayed above (on the left) is your goal for blood pressure control. Your most recent blood pressure is also shown above, on the right. You should try to achieve blood pressures that are lower than your goal listed above (on the left). Lifestyle - Current Smoker Lifestyle Smoking Cathy Aguayo MD Note: Smoking Cessation Plan Discussed smoking cessation with patient. Patient readiness to quit:yes Discussed smoking cessation plan according to AHRQ guidelines:counseled patient on the risks of tobacco use My Quit Plan: My quit date is set for soon - !!!!!!!!!! Notify my friends, family, and [...] is an individualized self-management goal for China Patelves: Please take all prescribed medications as directed. [...] filedocumented in this encounter Visit Diagnoses Diagnosis RLQ abdominal pain Abdominal pain, right lower quadrant Right flank pain Abdominal pain, unspecified site documented in this encounter Insurance Payer Benefit Plan / Subscriber ID Effective Dates Phone Address Type Group AETNA MEDICARE AETNA MEDICARE [id number] 2016-Present [employer] ADVANTAGE ADVANTAGE Guarantor Name Account Type Relation to Date of Phone Billing Patient Address Caroline Rodriguezarnel Rodriguez Personal/Family 1940 [address] (Home) [place], [place] [phone] (Work) documented as of this encounter
[2019-11-13 11:08] LABS: ABS Lymphocytes 0.7 10^3/ul (1.0-4.8); ABS Monocytes 0.3 10^3/ul (0-0.8); ABS Neutrophils 3.3 10^3/ul (1.5-7.7); Hematocrit 37 % (35-47); Hemoglobin 12.7 g/dL (12.0-16.0); Lymphocyte % 15.5 %; Mean Corpuscular HGB Conc 35 g/dL (31-36); Mean Corpuscular Hemoglobin 31 pg (27-31); Mean Corpuscular Volume 90 fL (80-97); Mean Platelet Volume 6.9 fL (7.4-10.4); Platelet Count 227 10^3/uL (150-450); Red Blood Count 4.11 10^6 /uL (3.70-4.87); Red Cell Distribution Width 16 % (10-15); White Blood Count 4.3 10^3/uL (3.5-10.8)
[2019-11-13 11:21] LABS: INR 2.3 (0.82-1.09)
[2019-11-13 11:25] LABS: Albumin 3.8 g/dL (3.2-5.2); Albumin/Globulin Ratio 1.1 (1-3); BUN/Creatinine Ratio 12.4 (8-20); C Reactive Protein 50.36 mg/L (<8.01); Calcium 9.1 mg/dL (8.6-10.3); EGFR African American 52.1 (>60); Globulin 3.4 g/dL (2-4); Total Bilirubin 0.5 mg/dL (0.2-1.0); Total Protein 7.2 g/dL (6.4-8.9)
[2019-11-13 12:25] LABS: Urine Appearance Cloudy; Urine Bilirubin Negative (Negative); Urine Blood 1+ (Negative); Urine Color Yellow; Urine Glucose Negative (Negative); Urine Ketones Negative (Negative); Urine Nitrite Negative (Negative); Urine Protein Negative (Negative); Urine Urobilinogen Negative (Negative)
[2019-11-13 12:38] LABS: Urine Bacteria 2+ (Absent); Urine Red Blood Cell Trace(0-2/hpf) (Absent); Urine Squamous Epithelial Cell Present (Absent); Urine White Blood Cell 1+(6-10/hpf) (Absent)
[2019-11-13 14:20] VITALS: BP 177/95
--- NOTE | 2019-11-16 05:53 | ED ---
Imaging and Labs Follow Up Follow Up Type: Labs/Cultures Labs/Culture Result: urine culture positive for strept group b 10-25,000 and normal shelton 1-10,000. Patient Communication/Plan: patient placed on macrobid which would not cover such but this is likely contaminant due to low culture yield and normal shelton so no further action needed. Provider Diagnoses: Back pain, UTI (urinary tract infection)
== END 2019-11-13 14:21 | disposition home or self-care (01) ==
LOC: ED 09:59
DX: M54.5 Low back pain (principal); N39.0 Urinary tract infection, site not specified; R10.31 Right lower quadrant pain; I70.0 Atherosclerosis of aorta; I77.811 Abdominal aortic ectasia; M51.36 Other intervertebral disc degeneration, lumbar region; E07.9 Disorder of thyroid, unspecified; I12.9 Hypertensive chronic kidney disease with stage 1 through stage 4 chronic kidney disease, or unspecified chronic kidney disease; N18.9 Chronic kidney disease, unspecified; E78.00 Pure hypercholesterolemia, unspecified; Z79.01 Long term (current) use of anticoagulants; Z79.899 Other long term (current) drug therapy; Z95.810 Presence of automatic (implantable) cardiac defibrillator; Z90.49 Acquired absence of other specified parts of digestive tract; Z88.2 Allergy status to sulfonamides; Z91.048 Other nonmedicinal substance allergy status; F17.210 Nicotine dependence, cigarettes, uncomplicated
CPT/HCPCS: 36415; 72131; 74176; 80053; 81003; 81015; 83605; 85025; 85610; 86140; 87077; 87086; 99283

== ENCOUNTER 2020-08-11 21:17 | Observation (INO) ==
[2020-08-11 21:58] LABS: ABS Monocytes 0.3 10^3/ul (0-0.8); ABS Neutrophils 3.5 10^3/ul (1.5-7.7); Hematocrit 36 % (35-47); Hemoglobin 12.1 g/dL (12.0-16.0); Lymphocyte % 21.4 %; Mean Corpuscular HGB Conc 34 g/dL (31-36); Mean Corpuscular Hemoglobin 31 pg (27-31); Mean Corpuscular Volume 91 fL (80-97); Mean Platelet Volume 6.8 fL (7.4-10.4); Nucleated Red Blood Cells % 0.1; Platelet Count 240 10^3/uL (150-450); Red Blood Count 3.93 10^6 /uL (3.70-4.87); Red Cell Distribution Width 15 % (10-15); White Blood Count 4.8 10^3/uL (3.5-10.8)
[2020-08-11 22:03] LABS: INR 2.76 (0.82-1.09)
[2020-08-11 22:12] LABS: Albumin 3.6 g/dL (3.2-5.2); Albumin/Globulin Ratio 1.2 (1-3); BUN/Creatinine Ratio 12.4 (8-20); Calcium 8.6 mg/dL (8.6-10.3); EGFR African American 51.9 (>60); EGFR Non-African American 42.9 (>60); Globulin 3.1 g/dL (2-4); Total Bilirubin 0.4 mg/dL (0.2-1.0); Total Protein 6.7 g/dL (6.4-8.9)
[2020-08-11 22:15] LABS: Troponin I 0.01 ng/mL (<0.03)
[2020-08-12] MEDS ORDERED: Al Hydrox/Mg Hydrox/Simet LIQ 30 ML UDC PO ONE (02:20)
[2020-08-12] MEDS ORDERED: Nitro 2% OINT (Nitroglycerin) 1 INCH/PAK TOPICAL ONE (02:56)
[2020-08-12] MEDS ORDERED: Warfarin per PHARMACY **NOTE FOLLOW UP SCH (07:00)
[2020-08-12 07:29] LABS: INR 2.87 (0.82-1.09)
[2020-08-12 07:34] LABS: BUN/Creatinine Ratio 12.5 (8-20); Calcium 9.1 mg/dL (8.6-10.3); EGFR African American 56.8 (>60); EGFR Non-African American 46.9 (>60); HDL Cholesterol 31.5 mg/dL; Potassium 4.2 mmol/L (3.5-5.0)
[2020-08-12 07:35] LABS: Troponin I 0.01 ng/mL (<0.03)
[2020-08-12 07:56] LABS: Magnesium 1.9 mg/dL (1.9-2.7)
[2020-08-12 11:19] VITALS: BP 134/68
[2020-08-12] MEDS ORDERED: Regadenoson 0.4 MG/5 ML SYRINGE ONE ×2 (13:30→14:32)
== END 2020-08-12 17:52 | disposition home or self-care (01) ==
LOC: MEDTELE 21:17 → ED 21:17 → MEDTELE 08-12 04:12
PROVIDERS: ADMIT Internal Medicine; ATTEND Student in an Organized Health Care Education/Training Program

== ENCOUNTER 2021-04-06 16:29 | Inpatient (IN) ==
[2021-04-06 17:08] LABS: ABS Lymphocytes 1.1 10^3/ul (1.0-4.8); ABS Monocytes 0.3 10^3/ul (0-0.8); ABS Neutrophils 2.8 10^3/ul (1.5-7.7); Eosinophil % 0.1 %; Hematocrit 37 % (35-47); Hemoglobin 12.8 g/dL (12.0-16.0); Lymphocyte % 25.7 %; Mean Corpuscular HGB Conc 34 g/dL (31-36); Mean Corpuscular Hemoglobin 31 pg (27-31); Mean Corpuscular Volume 92 fL (80-97); Platelet Count 206 10^3/uL (150-450); Red Blood Count 4.09 10^6 /uL (3.70-4.87); Red Cell Distribution Width 16 % (10-15); White Blood Count 4.2 10^3/uL (3.5-10.8)
[2021-04-06 17:17] LABS: Albumin 4.2 g/dL (3.2-5.2); Albumin/Globulin Ratio 1.1 (1-3); Calcium 9.6 mg/dL (8.6-10.3); EGFR African American 42.4 (>60); Globulin 3.7 g/dL (2-4); Total Bilirubin 0.4 mg/dL (0.2-1.0); Total Protein 7.9 g/dL (6.4-8.9)
[2021-04-06 17:20] LABS: Troponin I 0.01 ng/mL (<0.03)
[2021-04-06 17:25] LABS: INR 2.02 (0.86-1.15)
[2021-04-06] MEDS ORDERED: Iodixanol (CONTRAST) 320 MG/ML 100 ML SDV IV ONE (18:13)
[2021-04-06 22:14] LABS: Magnesium 1.9 mg/dL (1.9-2.7)
[2021-04-06] MEDS ORDERED: Lactated Ringers 1000 ml BAG 1,000 ML IV ONE (22:26)
[2021-04-07 04:52] LABS: ABS Lymphocytes 0.9 10^3/ul (1.0-4.8); ABS Monocytes 0.4 10^3/ul (0-0.8); ABS Neutrophils 2.9 10^3/ul (1.5-7.7); Eosinophil % 0.1 %; Hematocrit 33 % (35-47); Hemoglobin 11.4 g/dL (12.0-16.0); Lymphocyte % 22.1 %; Mean Corpuscular HGB Conc 34 g/dL (31-36); Mean Corpuscular Hemoglobin 31 pg (27-31); Mean Corpuscular Volume 91 fL (80-97); Mean Platelet Volume 6.5 fL (7.4-10.4); Nucleated Red Blood Cells % 0.1; Platelet Count 176 10^3/uL (150-450); Red Blood Count 3.65 10^6 /uL (3.70-4.87); Red Cell Distribution Width 15 % (10-15); White Blood Count 4.2 10^3/uL (3.5-10.8)
[2021-04-07 05:03] LABS: INR 2.11 (0.86-1.15)
[2021-04-07 05:09] LABS: Calcium 8.9 mg/dL (8.6-10.3); EGFR African American 54.4 (>60); Potassium 3.7 mmol/L (3.5-5.0)
[2021-04-07 13:31] LABS: Urine Creatinine Concentration 39.81 mg/dL
[2021-04-07] MEDS: Polyethylene Glycol 3350 17 GM PACKET PO SCH (14:04)
[2021-04-07] MEDS ORDERED: NS 0.9% 1000 ml BAG 1,000 ML IV SCH (23:55)
[2021-04-08 04:18] LABS: ABS Lymphocytes 1.2 10^3/ul (1.0-4.8); ABS Monocytes 0.4 10^3/ul (0-0.8); ABS Neutrophils 3.3 10^3/ul (1.5-7.7); Eosinophil % 0.1 %; Hematocrit 33 % (35-47); Hemoglobin 11.6 g/dL (12.0-16.0); Lymphocyte % 25.2 %; Mean Corpuscular HGB Conc 35 g/dL (31-36); Mean Corpuscular Hemoglobin 32 pg (27-31); Mean Corpuscular Volume 90 fL (80-97); Mean Platelet Volume 6.7 fL (7.4-10.4); Nucleated Red Blood Cells % 0.1; Platelet Count 186 10^3/uL (150-450); Red Blood Count 3.66 10^6 /uL (3.70-4.87); Red Cell Distribution Width 15 % (10-15); White Blood Count 4.9 10^3/uL (3.5-10.8)
[2021-04-08 04:25] LABS: INR 1.94 (0.86-1.15)
[2021-04-08 04:29] LABS: Calcium 9.1 mg/dL (8.6-10.3); Potassium 4.1 mmol/L (3.5-5.0)
[2021-04-08 04:34] LABS: EGFR African American 52.8 (>60); EGFR Non-African American 43.6 (>60)
[2021-04-08] MEDS ORDERED: Midazolam 5 mg/5 ml VIAL 1 mg/ml 5 ml VIAL (5 mg) ONE (07:33)
[2021-04-08] MEDS ORDERED: VERAPAMIL 2.5 MG/ML 2 ML VIAL ** 5 mg/2 ml ONE (07:34)
[2021-04-08] MEDS ORDERED: nitroGLYCERIN DRIP 25,000 MCG/250 ML BTL ONE (07:34)
[2021-04-08] MEDS ORDERED: Lidocaine 1% VIAL 10 MG/ML VIAL ONE (07:34)
[2021-04-08] MEDS ORDERED: Heparin 2 UNITS/ML 1000 mls 2,000 ML IV ONE (07:34)
[2021-04-08] MEDS ORDERED: Iodixanol 320 (CONTRAST) 100 ML SDV ONE (07:34)
[2021-04-08] MEDS ORDERED: fentaNYL 100 mcg/2 ml 50 MCG/ML VIAL ONE (07:34)
[2021-04-08] MEDS ORDERED: Heparin 1,000 UNIT/ML 10 ml (10,000 UNITS) CATHLAB/DIALYSIS ONE (07:34)
[2021-04-08] MEDS ORDERED: diPHENhydraMINE 25 mg TAB PO PRN (08:00)
[2021-04-08] MEDS ORDERED: Metoprolol Tartrate 5 mg VIAL 5 ml VIAL (1 mg/ml) ONE (12:34)
[2021-04-08] MEDS: Polyethylene Glycol 3350 17 GM PACKET PO SCH (13:47)
[2021-04-08 15:32] VITALS: BP 182/91
== END 2021-04-08 16:00 | disposition short-term general hospital (02) | DRG 287 ==
LOC: ED 16:29 → MEDTELE 21:09
PROVIDERS: ADMIT Pediatrics; ATTEND Internal Medicine